=== PATIENT | male | born 1945 | race Caucasian/White ===

== ENCOUNTER 2023-11-09 14:30 | Outpatient (OUT) | payer MEDICARE, SELFPAY | END 2023-11-09 14:31 | disposition home or self-care (01) | LOC: WC 11-11 13:19 | PROVIDERS: PCP Physician Assistant; Visit Provider Physician Assistant | DX: I87.311 Chronic venous hypertension (idiopathic) with ulcer of right lower extremity (principal); L97.812 Non-pressure chronic ulcer of other part of right lower leg with fat layer exposed | CPT/HCPCS: G0463 ==

== ENCOUNTER 2023-11-23 14:22 | Outpatient (OUT) | payer MEDICARE, SELFPAY ==
--- OUTSIDE RECORDS SUMMARY | 2023-11-23 14:26 | XMS_ITS | CCD ---
Author Organization [facility] Care Team Providers Care Intelligence Agent Name Role Phone Unknown, Referring Provider Unavailable Unav ailable Unavailable Unavailable Kristi Ramos Primary Care Physician Mi, Dr. Zaman Referring Unavaila ble Mi, Dr. Zaman Attending Unavaila ble UNKNOWN, PCP Primary Care Unavailable UNKNOWN, PCP Primary Care Unavailable Mi, Dr. Zaman Referring Unavaila ble Mi, Dr. Zaman Attending Unavaila ble Richard, NICOLETTE Duron Primary Care Provider MD Brian Pradhan Attending Provider MD Becky Dupont Attending Provider [phone] ZACHARY, DR ABAD Admitting Unavailable ZACHARY, DR ABAD Consulting Unavailable ZACHARY, DR ABAD Attending Unavailable MISC, DR PORTER Admitting Unavailable MISC, DR PORTER Consulting Unavailable MISC, DR PORTER Attending Unavailable Cee DO, Elda R Primary Care Provider Leola Stark MD Unavailable LEOLA STARK Attending Unavailable CEE, ELDA R Primary Care Unavailable Cee DO, Elda Primary Care Provider Adrian Lares Attending Unavailabl Adrian Sewell Admitting Unavailabl e Cee III, Elda R Primary Care Unavailabl e Cee III, DO Elda R Primary Care Provider MD Adrian Lares Attending Provider Constance Kohler Admitting Unavailable NONE, XXXX Referring Unavailable Constance Kohler Attending Unavailable Dolkamlesh, Boris Hodges Attending Unavailable Dolkamlesh, Boris Hodges Referring Unavailable Dolkamlesh, Boris Hodges Attending Unavailable LORA HERNANDEZ Attending Unavailable DOLKAMLESH, BORIS Hodges Attending Unavailable DOLKAMLESH, BORIS Hodges Attending Unavailable DOLKAMLESH, BORIS Hodges Referring Unavailable PETITTI, BECKY Bryan Attending Unavailable DOLKAMLESH, BORIS Hodges Attending Unavailable PETITTI, BECKY Bryan Attending Unavailable DOLKAMLESH, BORIS Hodges Attending Unavailable PETITTI, BECKY Bryan Attending Unavailable POLLO SHARMA Attending Unavailable DOLCE, BORIS Hodges Attending Unavailable Akkina, Vito Admitting Unavailable Akkina, Vito Attending Unavailable Akkina, Vito Attending Unavailable Akkina, Vito Admitting Unavailable Medications Current Medications Medication Drug Class(es) Dates Sig (Normalized) Sig (Original) amLODIPine 5 mg oral tablet (20 sources) Dihydropyridine Calcium Channel Ernesto Start: 11-08-2019 take 1 tablet by mouth once daily amLODIPine 5 mg Tab 5 mg = 1 tab(s), Oral, Daily, Refills(s) 0 Start Date: 11/08/19 Status: Ordered Start: 01-27-2018 take 10 mg by mouth once daily Amlodipine Active 10 MG PO Daily January 27, 2018 1:00am aspirin 81 mg chewable tablet (20 sources) Platelet Aggregation Inhibitor, Nonsteroidal Anti-inflammatory Drug Start: 01-27-2018 take 81 mg by mouth two times weekly Aspirin Active 81 MG PO Twice a Week January 27, 2018 1:00am Wednesday and only Start: 10-19-2017 aspirin 81 mg Oral EC Tab 81 mg = 1 tab(s), Oral, TueFri, Refills(s) 0, Blood Thinner Start Date: 10/19/17 Status: Ordered Start: 10-19-2017 aspirin 81 mg Oral EC Tab 81 mg = 1 tab(s), Oral, TueFri, Refills(s) 0, Blood Thinner Start Date: 10/19/17 Status: Ordered betamethasone 0.5 mg/ml topical cream (6 sources) Corticosteroid Start: 12-31-2022 betamethasone dipropionate 0.05 % cream Indications: Erosive pustular dermatosis of scalp Apply to affected areas, up to twice a day when flared, do not use one the face, groin, or underarms, 30 day supply 45 g 11 12/31/2022 Active Start: 12-10-2022 betamethasone dipropionate (Diprolene) 0.05 % ointment Indications: Impetigo Apply to scalp BID 45 g 3 12/10/2022 Active cephalexin 500 mg oral capsule (3 sources) Cephalosporin Antibacterial Start: 12-14-2022 take 1 capsule by mouth twice daily cephalexin (Keflex) 500 MG capsule Indications: Impetigo Take 1 capsule, by mouth, bid x 7 days 14 capsule 0 12/14/2022 Active donepezil hydrochloride 10 mg oral tablet (11 sources) Start: 12-01-2022 donepezil 10 mg Tab Refills(s) 0 Start Date: 12/01/22 Status: Ordered take 1 tablet by mouth twice evelin ly donepezil (Aricept ODT) 10 mg disintegrating tablet Take 1 tablet (10 mg) by mouth 2 times a day. 0 Active dulaglutide (18 sources) GLP-1 Receptor Agonist Start: 04-15-2023 inject 3 mg by subcutaneous injection every week Dulaglutide Active 3 MG SUBCUT every week April 15, 2023 1:00am Start: 01-01-2020 Trulicity Pen 0.75 mg/0.5 mL subcutaneous solution SubCutaneous, qWeek, Refills(s) 0 Start Date: 01/01/20 Status: Ordered inject 1.5 mg by sub cutaneous injection every week dulaglutide (Trulicity) 1.5 MG/0.5ML solution pen-injector Inject 1.5 mg under the skin 1 (one) time per week. 0 Active empagliflozin 10 mg oral tablet (2 sources) Sodium-Glucose Cotransporter 2 Inhibitor Start: 04-15-2023 take 1 tablet by mouth once daily Empagliflozin (Jardiance) 10 mg tablet Active 10 MG PO Daily April 15, 2023 1:00am finasteride 5 mg oral tablet (20 sources) 5-alpha Reductase Inhibitor Start: 11-04-2020 take 1 tablet by mouth once daily finasteride 5 mg Tab 5 mg = 1 tab(s), Oral, Daily, # 90 tab(s), Refills(s) 3, Pharmacy: [facility] #[facility], 157, cm, 12/01/22 15:00:00 EDT, Height/Length Dosing, 94.6, kg, 12/01/22 15:00:00 EDT, Weight Dosing Start Date: 12/01/22 Status: Ordered take 1 tablet by mouth twice evelin ly finasteride (Proscar) 5 mg tablet Take 1 tablet (5 mg) by mouth 2 times a day. 0 Active furosemide 40 mg oral tablet (19 sources) Loop Diuretic Start: 10-24-2019 take 1 mg by mouth once daily furosemide 40 mg Tab mg tab(s), Oral, Daily, Refills(s) 0 Start Date: 11/04/20 Status: Ordered glyBURIDE 5 mg oral tablet (20 sources) Sulfonylurea Start: 11-08-2019 take 1 tablet by mouth once daily glyBURIDE 5 mg Tab 5 mg = 1 tab(s), Oral, Daily, Refills(s) 0 Start Date: 11/08/19 Status: Ordered Start: 01-27-2018 take 5 mg by mouth twice daily Glyburide Active 5 MG PO Twice daily January 27, 2018 1:00am 3 ml insulin glargine 100 unt/ml pen injector (18 sources) Insulin Analog Start: 04-15-2023 inject 10 [IU] by subcutaneous injection once daily in the evening Insulin Glargine (Lantus Solostar U-100 Insulin) 100 unit/mL (3 mL) insulin pen Active 10 UNIT SUBCUT Every evening April 15, 2023 1:00am Start: 11-04-2020 Lantus SubCuta neous, Daily, Refills(s) 0 Start Date: 11/04/20 Status: Ordered insulin glargine (Lantus) 100 UNIT/ML injection Inject under the skin at bedtime. 0 Active Lantus SOLN USE DIRECTED. Quantity: 0 Refills: 0 Ordered: 03-Dec-2021 DO Active metoprolol tartrate 25 mg oral tablet (20 sources) beta-Adrenergic Ernesto Start: 09-03-2017 take 1 tablet by mouth twice daily Metoprolol tartrate 25 mg Tab 25 mg = 1 tab(s), Oral, BID, Irregular heartbeat Start Date: 09/03/17 Status: Ordered take 1 tablet by mouth once alexei y metoprolol succinate XL (Toprol-XL) 25 mg 24 hr tablet Take 1 tablet (25 mg) by mouth once daily. Do not crush or chew. 0 Active take 1 tablet by mouth twice evelin ly Metoprolol Succinate ER 25 MG Oral Tablet Extended Release 24 Hour Take 1 tablet twice daily Quantity: 0 Refills: 0 Ordered: 27-Feb-2021 DO Active rosuvastatin calcium 40 mg oral tablet (20 sources) HMG-CoA Reductase Inhibitor Start: 04-15-2023 take 40 mg by mouth once daily Rosuvastatin Active 40 MG PO Daily April 15, 2023 1:00am Start: 03-30-2019 take 20 mg by mouth once daily at bedtime Crestor 20 mg, Oral, Once a day (at bedtime), Refills(s) 0 Start Date: 03/30/19 Status: Ordered take 2 tablets by [facility] in the morning rosuvastatin (Crestor) 20 MG tablet Take 40 mg by mouth in the morning. 0 Active take 1 tablet by [facility] once daily rosuvastatin (Crestor) 40 mg tablet Take 1 tablet (40 mg) by mouth once daily. 0 Active SITagliptin 25 mg oral tablet (2 sources) Dipeptidyl Peptidase 4 Inhibitor Start: 01-01-2020 take 1 mg by mouth once daily Januvia 25 mg Tab mg tab(s), Oral, Daily, Refills(s) 0 Start Date: 01/01/20 Status: Ordered spironolactone 25 mg oral tablet (14 sources) Aldosterone Antagonist Start: 12-01-2022 spironolactone 25 mg Tab Refills(s) 0 Start Date: 12/01/22 Status: Ordered tamsulosin hydrochloride 0.4 mg oral capsule (20 sources) alpha-Adrenergic Ernesto Start: 04-15-2023 take 0.4 mg by mouth once daily Tamsulosin Active 0.4 MG PO Daily April 15, 2023 1:00am Start: 11-04-2020 take 1 capsule by [facility] twice daily Flomax 0.4 mg Cap 0.4 mg = 1 cap(s), Oral, BID, # 180 cap(s), Refills(s) 3, Pharmacy: [facility], 157, cm, 12/01/22 15:00:00 EDT, Height/Length Dosing, 94.6, kg, 12/01/22 15:00:00 EDT, Weight Dosing Start Date: 12/01/22 Status: Ordered take 1 capsule by [facility] every twenty-four hours in the morning tamsulosin (Flomax) 0.4 MG 24 hr capsule Take 0.4 mg by mouth in the morning. 0 Active warfarin sodium 5 mg oral tablet (20 sources) Vitamin K Antagonist Start: 10-06-2022 Coumadin 5 mg Tab See Instructions, take 5 mg on . Take 2.5 mg all other days, # 90 tab(s), Refills(s) 1, Pharmacy: [facility], 157, cm, 11/26/21 14:13:00 EDT, Height/Length Dosing, 94.6, kg, 11/26/21 14:13:00 EDT, Weight Dosing Start Date: 10/06/22 Status: Ordered Start: 10-03-2019 Coumadin 5 mg Tab See Instructions, take 5 mg everday except wed and wednesday, # 90 tab(s), Refills(s) 2, Pharmacy: [facility], 157, cm, 11/04/20 12:43:00 EDT, Height/Length Dosing, 96.2, kg, 11/04/20 12:43:00 EDT, Weight Dosing Start Date: 09/02/21 Status: Ordered Start: 01-27-2018 Coumadin 2.5 m g Tab See Instructions, take 2.5 mg on wed and wednesday, # 90 tab(s), Refills(s) 2, Pharmacy: [facility], 157, cm, 11/04/20 12:43:00 EDT, Height/Length Dosing, 96.2, kg, 11/04/20 12:43:00 EDT, Weight Dosing Start Date: 09/02/21 Status: Ordered Start: 01-27-2018 End: 10-24-2019 take 1 mg by mouth once Warfarin Discontinued 1 MG P O every Wednesday, Wednesday, and Saturday January 27, 2018 1:00am October 24, 2019 9:21am Warfarin Sodium 2.5 MG Oral Tablet directed by [facility] Quantity: 0 Refills: 0 Ordered: 27-Feb-2021 DO Active Completed/Discontinued Medications Medication Drug Class(es) Dates Sig (Normalized) Sig (Original) amiodarone hydrochloride 200 mg oral tablet (6 sources) Antiarrhythmic Start: 01-27-2018 End: 04-15-2023 take 100 mg by mouth once daily Amiodarone Discontinued 100 MG PO Daily January 27, 2018 1:00am April 15, 2023 10:51am Start: 05-11-2014 take 1 tablet by rocio once daily amiodarone 200 mg Tab 200 mg = 1 tab(s), Oral, Daily, Refills(s) 0, Irregular heartbeat Start Date: 05/11/14 Status: Ordered atorvastatin 80 mg oral tablet (4 sources) HMG-CoA Reductase Inhibitor Start: 01-27-2018 End: 10-24-2019 take 80 mg by mouth once daily Atorvastatin Discontinued 80 MG PO Daily January 27, 2018 1:00am October 24, 2019 9:12am doxycycline hyclate 100 mg oral capsule (2 sources) Tetracycline-class Drug Start: 01-01-2020 take 1 tablet by mouth once daily doxycycline hyclate 100 mg Cap 100 mg = 1 cap(s), Oral, Daily, Take 1 tablet the day before the procedure and 1 tablet after the procedure, # 2 cap(s), Refills(s) 0, Pharmacy: [id number], 157, cm, 01/01/20 15:45:00 EST, Height/Length Dosing, 96, kg, 01/01/20 15:45:0... Start Date: 01/01/20 Status: Ordered gemfibrozil 600 mg oral tablet (4 sources) Peroxisome Proliferator Receptor alpha Agonist Start: 01-27-2018 End: 10-24-2019 take 600 mg by mouth twice daily Gemfibrozil Discontinued 600 MG PO Twice daily January 27, 2018 1:00am October 24, 2019 9:19am INSULIN SUPPLIES (11 sources) Start: 11-10-2019 INSULIN SUPPLI ES INSULIN SUPPLIES, See Instructions, 1 EA, 0, 1. KWIK PEN NEEDLES QID # 120, [facility], Supply, 158, cm, 11/08/19 9:19:00 EDT, Height/Length Dosing, 93.9, kg, 11/08/19 9:19:00 EDT, Weight Dosing Start Date: 11/10/19 Status: Ordered losartan potassium 100 mg oral tablet (4 sources) Angiotensin 2 Receptor Ernesto Start: 01-27-2018 End: 04-15-2023 take 100 mg by mouth once daily Losartan Discontinued 100 MG PO Daily January 27, 2018 1:00am April 15, 2023 10:52am Magnesium (8 sources) Start: 10-24-2019 End: 04-15-2023 take 400 mg by mouth once daily Magnesium Discontinued 400 MG PO Daily October 24, 2019 12:00am April 15, 2023 10:53am CONTINUE HOME ROUTINE Start: 10-24-2019 take 400 mg by mouth once daily Magnesium Active 400 MG PO Daily October 23, 2019 11:00pm CONTINUE HOME ROUTINE Start: 01-27-2018 End: 10-24-2019 take 250 mg by mouth once daily Magnesium Discontinued 250 MG PO Daily January 27, 2018 1:00am October 24, 2019 9:25am Start: 01-27-2018 End: 10-24-2019 take 250 mg by mouth once daily Magnesium Discontinued 250 MG PO Daily January 27, 2018 12:00am October 24, 2019 8:25am metFORMIN hydrochloride 1000 mg oral tablet (4 sources) Biguanide Start: 01-27-2018 End: 04-15-2023 take 1000 mg by mouth twice daily Metformin Discontinued 1000 MG PO Twice daily January 27, 2018 1:00am April 15, 2023 10:53am niacin 500 mg oral tablet (4 sources) Nicotinic Acid Start: 01-27-2018 End: 10-24-2019 take 500 mg by mouth once daily Niacin Discontinued 500 MG PO Daily January 27, 2018 1:00am October 24, 2019 9:20am potassium chloride 20 meq extended release oral tablet (4 sources) Start: 01-27-2018 End: 04-15-2023 take 40 mEq by mouth three times daily Potassium Chloride Discontinued 40 MEQ PO Three times daily January 27, 2018 1:00am April 15, 2023 10:53am Problems Active Problems Problem Classification Problem Date Documented Date Episodic/Chronic Acute cerebrovascular disease (14 sources) Cerebrovascular accident; Translations: [Cerebral infarction, unspecified] Onset: 11-19-2022 12-04-2019 Chronic Cardiac dysrhythmias (20 sources) Permanent atrial fibrillation; Translations: [Atrial fibrillation] Onset: 02-24-2023 Chronic Chronic kidney disease (1 source) Chronic kidney disease; Translations: [Chronic kidney disease, unspecified] Chronic Chronic ulcer of skin (2 sources) Chronic ulcer of lower extremity; Translations: [Non-pressure chronic ulcer of unspecified part of right lower leg with fat layer exposed] 03-29-2023 Chronic Complications of surgical procedures or medical care (1 source) Complication of procedure; Translations: [Other complications of procedures, not elsewhere classified, initial encounter] Onset: 11-17-2021 Episodic Congestive heart failure; nonhypertensive (3 sources) Acute on chronic diastolic heart failure; Translations: [Acute on chronic diastolic (congestive) heart failure] Onset: 12-22-2017 11-19-2022 Chronic Coronary atherosclerosis and other heart disease (20 sources) Single coronary vessel disease; Translations: [Coronary atherosclerosis of unspecified type of vessel, hoopa or graft] Onset: 11-19-2022 Chronic Coronary atherosclerosis and other heart disease (1 source) Coronary atherosclerosis and other heart disease; Translations: [Atherosclerosis of hoopa arteries of extremities with intermittent claudication, bilateral legs] Onset: 04-28-2023 Diabetes mellitus with complications (10 sources) Complication due to diabetes mellitus; Translations: [Type 2 diabetes mellitus with other specified complication] Onset: 07-08-2022 Chronic Diabetes mellitus without complication (13 sources) Diabetes mellitus; Translations: [Type 2 diabetes mellitus without complications] 10-27-2017 Chronic Disorders of lipid metabolism (20 sources) Hyperlipidemia; Translations: [Other and unspecified hyperlipidemia] Onset: 11-19-2022 Chronic Essential hypertension (20 sources) Hypertensive disorder; Translations: [Unspecified essential hypertension] Onset: 11-19-2022 Resolved: 11-19-2022 09-03-2017 Chronic Fluid and electrolyte disorders (4 sources) Hypokalemia; Translations: [Hypopotassemia] Onset: 02-24-2023 02-24-2023 Episodic Genitourinary symptoms and ill-defined conditions (20 sources) H/O: kidney disease; Translations: [Personal history of other specified urinary system disorders] Onset: 11-26-2021 Resolved: 11-19-2022 11-04-2020 Episodic Hyperplasia of prostate (16 sources) Benign prostatic hypertrophy with outflow obstruction; Translations: [Benign prostatic hyperplasia with lower urinary tract symptoms] Onset: 11-26-2021 12-04-2019 Chronic Hypertension with complications and secondary hypertension (4 sources) 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; Translations: [Hypertensive heart and chronic kidney disease without heart failure, with stage 1 through stage 4 chronic kidney disease, or unspecified chronic kidney disease] Onset: 12-22-2017 Chronic Inflammatory conditions of male genital organs (14 sources) Balanitis; Translations: [Balanitis] Onset: 11-19-2022 12-04-2019 Chronic Inflammatory conditions of male genital organs (14 sources) Prostatitis; Translations: [Inflammatory disease of prostate, unspecified] Onset: 11-19-2022 12-04-2019 Episodic Other aftercare (3 sources) Drug therapy finding; Translations: [Long-term (current) use of other medications] Episodic Other aftercare (2 sources) Drug monitoring done; Translations: [Encounter for therapeutic drug level monitoring] Episodic Other aftercare (2 sources) Long-term current use of anticoagulant; Translations: [watermaster (current) use of anticoagulants] Episodic Other aftercare (1 source) Long-term current use of insulin; Translations: [residential (current) use of insulin] Episodic Other aftercare (1 source) Long-term current use of oral hypoglycemic medication; Translations: [residential (current) use of oral hypoglycemic drugs] Episodic Other aftercare (1 source) Long-term current use of aspirin; Translations: [residential (current) use of aspirin] Episodic Other aftercare (1 source) Long-term current use of drug therapy; Translations: [Other watermaster (current) drug therapy] Episodic Other circulatory disease (3 sources) H/O: hypertension; Translations: [Personal history of other diseases of circulatory system] Episodic Other circulatory disease (1 source) History of transient ischemic attack; Translations: [Personal history of transient ischemic attack (TIA), and cerebral infarction without residual deficits] Episodic Other diseases of kidney and ureters (11 sources) Renal insufficiency 09-03-2017 Episodic Other diseases of veins and lymphatics (2 sources) Peripheral venous insufficiency; Translations: [Venous insufficiency (chronic) (peripheral)] 03-29-2023 Episodic Other diseases of veins and lymphatics (2 sources) Vascular insufficiency; Translations: [Venous insufficiency (chronic) (peripheral)] 04-15-2023 Episodic Other ear and sense organ disorders (4 sources) Sensorineural hearing loss, bilateral; Translations: [Sensorineural hearing loss, bilateral] Onset: 02-24-2023 02-24-2023 Chronic Other ear and sense organ disorders (17 sources) Mixed conductive AND sensorineural hearing loss; Translations: [Mixed hearing loss, unilateral] Onset: 11-19-2022 10-19-2017 Chronic Comment on above: left Other ear and sense organ disorders (1 source) Mixed conductive and sensorineural hearing loss of left ear; Translations: [Mixed conductive and sensorineural hearing loss, unilateral, left ear, with unrestricted hearing on the contralateral side] Onset: 02-24-2023 02-24-2023 Chronic Other ear and sense organ disorders (3 sources) Asymmetrical sensorineural hearing loss; Translations: [Sensorineural hearing loss, bilateral] Onset: 11-19-2022 11-19-2022 Chronic Other ear and sense organ disorders (3 sources) Mixed conductive and sensorineural hearing loss of right ear; Translations: [Mixed conductive and sensorineural hearing loss, unilateral, right ear, with unrestricted hearing on the contralateral side] Onset: 11-19-2022 11-19-2022 Chronic Other ear and sense organ disorders (3 sources) Sensorineural hearing loss, unilateral, left ear, with unrestricted hearing on the contralateral side; Translations: [Sensorineural hearing loss, unilateral] Onset: 11-19-2022 11-19-2022 Chronic Other ear and sense organ disorders (3 sources) Unspecified hearing loss, left ear; Translations: [Unspecified hearing loss] Onset: 11-24-2022 11-24-2022 Chronic Other lower respiratory disease (6 sources) Dyspnea; Translations: [Shortness of breath] Onset: 02-24-2023 03-24-2023 Episodic Other lower respiratory disease (1 source) Shortness of breath; Translations: [Shortness of breath] Onset: 02-24-2023 Episodic Other nutritional; endocrine; and metabolic disorders (2 sources) Obesity; Translations: [Obesity, unspecified] Chronic Other nutritional; endocrine; and metabolic disorders (1 source) Severe obesity; Translations: [Morbid obesity] Chronic Other nutritional; endocrine; and metabolic disorders (2 sources) Body mass index 30+ - obesity; Translations: [Body mass index (BMI) 35.0-35.9, adult] Onset: 03-24-2023 03-24-2023 Chronic Other nutritional; endocrine; and metabolic disorders (2 sources) Body mass index (BMI) 35.0-35.9, adult; Translations: [Body mass index (BMI) 35.0-35.9, adult] Onset: 03-24-2023 Chronic Other nutritional; endocrine; and metabolic disorders (3 sources) H/O: diabetes mellitus; Translations: [Personal history of other endocrine, metabolic, and immunity disorders] Episodic Other nutritional; endocrine; and metabolic disorders (3 sources) H/O: metabolic disorder; Translations: [Personal history of other endocrine, metabolic, and immunity disorders] Episodic Peripheral and visceral atherosclerosis (1 source) Peripheral vascular disease, unspecified; Translations: [Peripheral arterial disease] 05-06-2023 Chronic Residual codes; unclassified (4 sources) Obstructive sleep apnea (adult) (pediatric); Translations: [OBSTRUCTIVE SLEEP APNEA] Onset: 06-16-2022 Chronic Residual codes; unclassified (3 sources) H/O: respiratory disease; Translations: [Other specified personal history presenting hazards to health] Episodic Unclassified (2 sources) Permanent atrial fibrillation; Translations: [Permanent atrial fibrillation (CMS/HCC)] Onset: 02-24-2023 Varicose veins of lower extremity (3 sources) Varicose veins of bilateral lower extremities with pain; Translations: [Varicose veins of lower limb co-occurrent with edema] Onset: 04-28-2023 05-03-2023 Episodic Past or Other Problems Problem Classification Problem Date Documented Da te Episodic/Chronic Mycoses (3 sources) Onychomycosis; Translations: [Tinea unguium] Onset: 07-08-2022 07-08-2022 Episodic Other connective tissue disease (3 sources) Pain of toe of right foot; Translations: [Pain in right toe(s)] Onset: 07-08-2022 07-08-2022 Episodic Other connective tissue disease (3 sources) Pain of toe of left foot; Translations: [Pain in left toe(s)] Onset: 07-08-2022 07-08-2022 Episodic Other ear and sense organ disorders (3 sources) Bilateral tinnitus; Translations: [Tinnitus, bilateral] Onset: 11-19-2022 11-19-2022 Episodic Other ear and sense organ disorders (3 sources) Tinnitus; Translations: [Tinnitus, unspecified ear] Onset: 11-19-2022 Resolved: 11-19-2022 11-19-2022 Episodic Other non-epithelial cancer of skin (9 sources) History of malignant neoplasm of skin; Translations: [Personal history of other malignant neoplasm of skin] Onset: 11-19-2022 11-19-2022 Episodic Other skin disorders (3 sources) Lesion of scalp; Translations: [Disorder of the skin and subcutaneous tissue, unspecified] Onset: 11-24-2022 11-24-2022 Episodic Superficial injury; contusion (3 sources) Blister of ankle without infection; Translations: [Blister (nonthermal), unspecified ankle, initial encounter] Onset: 06-05-2020 Resolved: 11-19-2022 11-19-2022 Episodic Unclassified (3 sources) Never smoked tobacco; Translations: [Never a smoker] Unclassified (11 sources) Basal cell carcinoma 09-03-2017 Unclassified (11 sources) Diabetic care 10-20-2017 Unclassified (1 source) Onset: 03-24-2023 03-24-2023 Results Test Name Value Interpretation Reference Range Facility POCT PT/INRon 11-12-2023 POCT INR 2.5 High .7-1.2 [facility] Comment on above: Performed By: #### 2 [id number] #### [facility] [address] [place] [address] POCT PT 27.1 second(s) High 8.0-15.0 [facility] Comment on above: Performed By: #### 2 [id number] #### [facility] [address] [place] [address] CHEMISTRYOrdered By: SYSTEM SYSTEM on 10-01-2023 Albumin [Mass/Vol] 4.1 g/dL Normal 3.3 - 5.0 gm/dL Remisol Chem Anion gap [Moles/Vol] 13 mmol/L Normal 6 - 16 mEq/L R emisol Chem Calcium [Mass/Vol] 9.0 mg/dL Normal 8.9 - 11. 1 mg/dL Remisol Chem Chloride [Moles/Vol] 110 mmol/L Normal 101 - 1 11 mmol/L Remisol Chem CO2 [Moles/Vol] 20 mmol/L Low 21 - 31 mmol/L Remisol Chem Creatinine [Mass/Vol] 2.0 mg/dL High 0.5 - 1.3 mg/dL Remisol Chem eGFR 33 mL/min/1.73 m2 Low >=59mL/min /1 .73 m2 Remisol Chem Glucose [Mass/Vol] 124 mg/dL Normal 55 - 199 mg/dL Remisol Chem Phosphate [Mass/Vol] 3.4 mg/dL Normal 1.9 - 4 .6 mg/dL Remisol Chem Potassium [Moles/Vol] 5.2 mmol/L Normal 3.5 - 5.3 mmol/L Remisol Chem Sodium [Moles/Vol] 138 mmol/L Normal 135 - 145 mmol/L Remisol Chem Urea nitrogen [Mass/Vol] 36 mg/dL High 5 - 21 mg/dL Remisol Chem Urea nitrogen/Creatinine [Mass ratio] 18 mg/mg Normal 10 - 20 Remisol Chem Protein/Creatinine (U) [Ratio] 88.70 mg/gm Cr Normal 0.00 - 200.00 mg/gm Cr Remisol Chem U Creatinine 41.5 mg/dL Invalid Interpretation Code Remisol Chem Ur Total Protein 36.8 mg/dL Invalid Interpretation Code Remisol Chem POCT PT/INRon 10-01-2023 POCT INR 2.8 High .7-1.2 [facility] Comment on above: Performed By: #### 2 [id number] #### [facility] [address] [place] [address] POCT PT 28.2 second(s) High 8.0-15.0 [facility] Comment on above: Performed By: #### 2 [id number] #### [facility] [address] [place] [address] Renal Panelon 10-01-2023 Phosphate [Mass/Vol] 3.4 mg/dL Normal 1.9-4.6 [facility] Comment on above: Performed By: #### 1 [id number] #### [facility] [address] [place] [address] Albumin [Mass/Vol] 4.1 g/dL Normal 3.3-5.0 [facility] Comment on above: Performed By: #### 1 [id number] #### [facility] [address] [place] [address] Anion gap [Moles/Vol] 13 mmol/L Normal 6-16 [facility] Comment on above: Performed By: #### 1 [id number] #### [facility] [address] [place] [address] Calcium [Mass/Vol] 9.0 mg/dL Normal 8.9-11.1 [facility] Comment on above: Performed By: #### 1 [id number] #### [facility] [address] [place] [address] Chloride [Moles/Vol] 110 mmol/L Normal 101-111 [facility] Comment on above: Performed By: #### 1 [id number] #### [facility] [address] [place] [address] CO2 [Moles/Vol] 20 mmol/L Low 21-31 [facility] Comment on above: Performed By: #### 1 [id number] #### [facility] [address] [place] [address] Creatinine [Mass/Vol] 2.0 mg/dL High 0.5-1.3 [facility] Comment on above: Performed By: #### 1 [id number] #### [facility] [address] [place] [address] Glucose [Mass/Vol] 124 mg/dL Normal 55-199 [facility] Comment on above: Performed By: #### 1 [id number] #### [facility] [address] [place] [address] Potassium [Moles/Vol] 5.2 mmol/L Normal 3.5-5.3 [facility] Comment on above: Performed By: #### 1 [id number] #### [facility] [address] [place] [address] Sodium [Moles/Vol] 138 mmol/L Normal 135-145 [facility] Comment on above: Performed By: #### 1 [id number] #### [facility] [address] [place] [address] Urea nitrogen [Mass/Vol] 36 mg/dL High 5-21 [facility] Comment on above: Performed By: #### 1 [id number] #### [facility] [address] [place] [address] Urea nitrogen/Creatinine [Mass ratio] 18 No Units Normal 10-20 [facility] Comment on above: Performed By: #### 1 [id number] #### [facility] [address] [place] [address] U Protein/Creat Ratioon 09-15 Protein/Creatinine (U) [Ratio] 88.70 mg/gm Cr Normal .00-200.00 [facility] Comment on above: Performed By: #### 1 [id number] #### [facility] [address] [place] [address] U Creatinine 41.5 mg/dL Invalid Interpretation Code [facility] Comment on above: Performed By: #### 1 [id number] #### [facility] [address] [place] [address] Ur Total Protein 36.8 mg/dL Invalid Interpretation Code [facility] Comment on above: Performed By: #### 1 [id number] #### [facility] [address] [place] [address] URINALYSISOrdered By: SYSTEM SYSTEM on 10-01-2023 Bilirubin Ql (U) Negative Normal Negativemg/ d L [facility] UA Auto SS Clarity (U) Clear (10/01/23 6:59 AM) Normal Clear [facility] UA Auto SS Color (U) Colorless 1 *ABN* (10/01/23 6:59 AM) Invalid Interpretation Code Yellow [facility] UA Auto SS Comment on above: Interpretive Data: M icroscopic readings are only performed on those samples that meet specific criteria set forth by [facility]. Epithelial cells.squamous Auto (Urine sed) [#/Area] 0-2 graded/HPF Invalid Interpretation Code FT UA Auto SS Glucose Ql (U) 4+ mg/dL Invalid Interpretation Code Negativemg/d L [facility] UA Auto SS Hemoglobin Auto test strip (U) [Mass/Vol] Trace mg/dL Invalid Interpretation Code Negativemg/d L [facility] UA Auto SS Ketones Auto test strip Ql (U) Negative Normal Negativemg/d L [facility] UA Auto SS Leukocyte esterase Auto test strip Ql (U) 250 Raquel/uL Raquel/uL Invalid Interpretation Code NegativeLeu/ uL [facility] UA Auto SS Mucus Auto Ql (U) Negative Normal Negativegr ad ed/LPF [facility] UA Auto SS Nitrite Auto test strip Ql (U) Negative Normal Negativemg/d L [facility] UA Auto SS pH (U) 6.0 *NA* (10/01/23 6:59 AM) Invalid Interpretation Code 5.0 - 9.0 [facility] UA Auto SS Protein Ql (U) Trace mg/dL Invalid Interpretation Code Negativemg/d L [facility] UA Auto SS RBC Ql (U) 4-20 graded/HPF Invalid Interpretation Code 0-3graded/HP F [facility] UA Auto SS Specific gravity (U) [Rel density] 1.011 *NA* (10/01/23 6:59 AM) Invalid Interpretation Code 1.005 - 1.030 [facility] UA Auto SS Urobilinogen (U) [Mass/Vol] Negative Normal Negativemg/d L [facility] UA Auto SS WBC Auto (Urine sed) [#/Area] 6-15 graded/HPF Invalid Interpretation Code 0-5graded/HP F [facility] UA Auto SS URINALYSISOrdered By: Eun Light on 10-01-2023 UA Spec Desc Clean Catch (10/01/23 6:59 AM) Normal [facility] UA Auto SS Urinalysis with Microon 09-15 Bilirubin Ql (U) Negative Normal Negative [facility] Comment on above: Performed By: #### 4 [id number] #### [facility] [address] [place] [id number] Clarity (U) Clear Normal Clear [facility] Comment on above: Performed By: #### 4 [id number] #### [facility] [address] [place] [address] Color (U) Colorless Abnormal Yellow [facility] Comment on above: Result Comment: Micr oscopic readings are only performed on those samples that meet specific criteria set forth by [facility]. Performed By: #### 4 [id number] #### [facility] [address] [place] [address] Epithelial cells.squamous Auto (Urine sed) [#/Area] 0-2 Invalid Interpretation Code [facility] Comment on above: Performed By: #### 4 [id number] #### [facility] [address] [place] [address] Glucose Ql (U) 4+ mg/dL Abnormal Negative [facility] Comment on above: Performed By: #### 4 [id number] #### [facility] [address] [place] [address] Hemoglobin Auto test strip (U) [Mass/Vol] Trace Abnormal Negative [facility] Comment on above: Performed By: #### 4 [id number] #### [facility] [address] [place] [address] Ketones Auto test strip Ql (U) Negative Normal Negative [facility] Comment on above: Performed By: #### 4 [id number] #### [facility] [address] [place] [address] Leukocyte esterase Auto test strip Ql (U) 250 Raquel/uL Abnormal Negative [facility] Comment on above: Performed By: #### 4 [id number] #### [facility] [address] [place] [address] Mucus Auto Ql (U) Negative Normal Negative [facility] Comment on above: Performed By: #### 4 [id number] #### [facility] [address] [place] [address] Nitrite Auto test strip Ql (U) Negative Normal Negative [facility] Comment on above: Performed By: #### 4 [id number] #### [facility] [address] [place] [address] pH (U) 6.0 [pH] Invalid Interpretation Code 5.0-9.0 [facility] Comment on above: Performed By: #### 4 [id number] #### [facility] [address] [place] [address] Protein Ql (U) Trace Abnormal Negative [facility] Comment on above: Performed By: #### 4 [id number] #### [facility] [address] [place] [address] RBC Ql (U) 4-20 Abnormal 0-3 [facility] Comment on above: Performed By: #### 4 [id number] #### [facility] [address] [place] [address] Specific gravity (U) [Rel density] 1.011 Invalid Interpretation Code 1.005-1.030 [facility] Comment on above: Performed By: #### 4 [id number] #### [facility] [address] [place] [address] Urobilinogen (U) [Mass/Vol] Negative Normal Negative [facility] Comment on above: Performed By: #### 4 [id number] #### [facility] [address] [place] [address] WBC Auto (Urine sed) [#/Area] 6-15 Abnormal 0-5 [facility] Comment on above: Performed By: #### 4 [id number] #### [facility] [address] [place] [address] Type of Urine collection method Clean Catch Normal [facility] Comment on above: Performed By: #### 4 [id number] #### [facility] [address] [place] [address] eGFRon 10-01-2023 eGFR 33 mL/min/1.73 m2 Low >=59 [facility] Comment on above: Order Comment: Order added by Discern Expert. Performed By: #### 1 [id number] #### [facility] [address] [place] [address] POCT PT/INRon 08-13-2023 POCT INR 2.5 High .7-1.2 [facility] Comment on above: Performed By: #### 2 [id number] #### [facility] [address] [place] [address] POCT PT 25.5 second(s) High 8.0-15.0 [facility] Comment on above: Performed By: #### 2 [id number] #### [facility] [address] [place] [address] POCT PT/INRon 07-09-2023 POCT INR 2.4 High .7-1.2 [facility] Comment on above: Performed By: #### 2 [id number] #### [facility] [address] [place] [facility] [place] [address] POCT PT 25.1 second(s) High 8.0-15.0 [facility] Comment on above: Performed By: #### 2 [id number] #### [facility] [address] [place] [place] [address] POCT PT/INRon 06-15-2023 POCT INR 2.7 High .7-1.2 [facility] Comment on above: Performed By: #### 2 [id number] #### [facility] [address] [place] [address] POCT PT 27.1 second(s) High 8.0-15.0 [facility] Comment on above: Performed By: #### 2 [id number] #### [facility] [address] [place] [address] POCT PT/INRon 06-01-2023 POCT INR 1.7 High .7-1.2 [facility] Comment on above: Performed By: #### 2 [id number] #### [facility] [address] [place] [address] POCT PT 18.5 second(s) High 8.0-15.0 [facility] Comment on above: Performed By: #### 2 [id number] #### [facility] [address] [place] [address] POCT PT/INRon 05-14-2023 POCT INR 3.5 High .7-1.2 [facility] Comment on above: Performed By: #### 2 [id number] #### [facility] [address] [place] [address] POCT PT 34.8 second(s) High 8.0-15.0 [facility] Comment on above: Performed By: #### 2 [id number] #### [facility] [address] [place] [address] US arterial pvr rest Milind US arterial pvr rest LE [facility] [place] [address] [place] [address] Ultrasound Report Signed Patient: Mckayla Lozano MR#: [id number] : 1945 Acct:[id number] Age/Sex: 77 / M ADM Date: 04/28/23 Loc: Room: Type: [facility] Attending Dr: Adrian Lares MD Ordering Provider: Adrian Lares MD Date of Service: 04/28/23 US/US arterial pvr rest LE: I70.213 - Atherosclerosis of hoopa arteries of extremiti... Copies to: Adrian Lares MD LOWER EXTREMITY SEGMENTAL ARTERIAL DOPSCAN (PVR) INDICATION: Color changes and diminished pulses. PROCEDURE: Right arm blood pressure is 136 , left is 125 . Pressures throughout the right leg are 236 at the high thigh, >254 at the calf, cno at the ankle using the posterior tibial artery and 133 at the ankle using the dorsalis pedis artery with ankle-brachial index of 0.98 -NC- . Pressures throughout the left leg are 239 at the high thigh,, 185 at the calf, 113 at the ankle using the posterior tibial artery and 245 at the ankle using the dorsalis pedis artery with ankle-brachial index of 1.80 0.83 . Wave forms by plethysmography are multiphasic in the right lower extremity and biphasic in the left lower extremity. 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 THE PATIENT IS MOST LIKELY TO HAVE diffuse DISEASE OF THE bilateral LOWER EXTREMITY. Impression dictated by: Adrian Lares MD04/28/2023 2:56 PM Dictation Location: [facility] Tech: Brianda Vasquez Transcribed By: CHELO 04/28/23 1456 Dictated By: Adrian Lares MD 04/28/23 145 Signed By: 04/28/23 145 [facility] US venous duplex LE BIon US venous duplex LE BI [facility] [place] [address] Ultrasound Report Signed Patient: Mckayla Lozano MR#: [id number] : 1945 Acct:[id number] Age/Sex: 77 / M ADM Date: 04/28/23 Loc: Room: Type: [facility] Attending Dr: Adrian Lares MD Ordering Provider: Adrian Lares MD Date of Service: 04/28/23 US/US venous duplex LE BI: I83.813 - Varicose veins of bilateral lower extremities w... Copies to: Adrian Lares MD BILATERAL LOWER EXTREMITY VENOUS DUPLEX INDICATION: Symptomatic varicose veins and skin discoloration. PROCEDURE: Color-flow duplex scanning is used to interrogate the deep venous system of the right and left lower extremities. The common femoral vein, femoral vein and popliteal vein show good compressibility with normal proximal and distal augmentation. The calf veins are compressible. US/US venous duplex LE BI IMPRESSION: NO EVIDENCE FOR DEEP VEIN THROMBOSIS OR PROXIMAL SUPERFICIAL THROMBOPHLEBITIS IN THE RIGHT OR LEFT LOWER EXTREMITY. No reflux identified in the bilateral lower extremities. Impression dictated by: Adrian Lares MD04/28/2023 2:56 PM Dictation Location: [place] [address] Tech: Elise Srinivasan Transcribed By: [facility] 04/28/23 1456 Dictated By: Adrian Lares MD 04/28/23 1456 Signed By: 04/28/23 1456 Normal [facility] POCT PT/INRon 04-02-2023 POCT INR 2.0 High .7-1.2 [facility] Comment on above: Performed By: #### 2 [id number] #### [facility] [address] [place] [address] POCT PT 21.4 second(s) High 8.0-15.0 [facility] Comment on above: Performed By: #### 2 [id number] #### [facility] [address] [place] [address] ECG 12 Leadon 03-24-2023 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 [facility] Nursing Assessment - Woundon 03-10-2023 Nursing Assessment - Wound [id number]#1. [facility] POCT PT/INRon 03-05-2023 POCT INR 2.6 High .7-1.2 [facility] Comment on above: Performed By: #### 2 [id number] #### [facility] [address] [place] [address] POCT PT 26.6 second(s) High 8.0-15.0 [facility] Comment on above: Performed By: #### 2 [id number] #### [facility] [address] [place] [address] Nursing Note - Woundon 03-03 Nursing Note - Wound [id number] [id number]#2. [facility] Consent for Treatmenton 02-15 Consent for Treatment [id number] [id number]#1.0 [facility] Multi-Wound Charton 03-02-19 Multi-Wound Chart [id number] 10 [id number]#1. [facility] Nursing Assessment - Woundon 03-02-2023 Nursing Assessment - Wound [id number]#1. [facility] Physician Orderon 03-02-2023 Physician Order [id number]#1. [facility] Progress Note - Woundon 02-15 Progress Note - Wound [id number] [id number]#1. [facility] Consent to Photographon 02-15 Consent to Photograph [id number] [id number]#1. [facility] Correspondence - Woundon Correspondence - Wound [id number]#1. [facility] Multi-Wound Charton 02-24-19 Multi-Wound Chart [id number] 10 [id number]#1. [facility] Nursing Note - Woundon 02-24 Nursing Note - Wound [id number] 010 [id number]#2. [facility] Outside Recordson 02-24-2023 Outside Records [id number] 03 [id number]#1. [facility] Procedure - Woundon 02-24-19 Procedure - Wound [id number] 10 [id number]#1. [facility] Consent for Treatmenton Consent for Treatment [id number] [id number]#1.0 [facility] Nursing Assessment - Woundon 02-23-2023 Nursing Assessment - Wound [id number]#1. [facility] Physician Orderon 02-23-2023 Physician Order [id number]#1. [facility] Progress Note - Woundon Progress Note - Wound [id number]#1. [facility] Insurance Correspondenceon 02-22-2023 Insurance Correspondence [id number]#1.0 0[facility] Normal [facility] Consent for Treatmenton Consent for Treatment [id number] [id number]#1.0 0[facility] Normal [facility] Correspondence - Woundon Correspondence - Wound [id number]#1. 00TI[facility] Normal [facility] CHEMISTRYOrdered By: Lab ROP User on 01-22-2023 INR Coag (Bld) [Relative time] 3.2 {INR} High 0.7 - 1.2 [facility] POC Subsection POC Device SN [id number] Invalid Interpretation Code [facility] POC Subsection POC Username CAMILLE PAT Invalid Interpretation Code [facility] POC Subsection POCT PT 32.2 s High 8.0 - 15.0 second(s) [facility] POC Subsection Sodium [Moles/Vol] 500391925 mmol/L Invalid Interpretation Code [facility] POC Subsection COAGULATIONOrdered By: April Pat on 01-22-2023 INR Coag (Bld) [Relative time] 3.2 {INR} High 0.7 - 1.2 [facility] POCT PT 32.2 s High 8 - 15 second(s) [facility] Medication Refillon 01-23-20 Medication Refill Patient: MCKAYLA LOZANO Age: 77 years Sex: Male : 1945 Associated Diagnoses: None Author: Bi RN, Camille Godfrey Impression and Plan Refill [facility] [place] for warfarin 2.5mg tablets for a 90 day supply with 1 refill Normal [facility] POCT PT/INRon 01-22-2023 POCT INR 3.2 High .7-1.2 [facility] Comment on above: Performed By: #### 2 [id number] #### [facility] [address] [place] [address] POCT PT 32.2 second(s) High 8.0-15.0 [facility] Comment on above: Performed By: #### 2 [id number] #### [facility] [address] [place] [address] CHEMISTRYOrdered By: Radha HANCOCK User on 12-11-2022 POC Device SN [id number] Invalid Interpretation Code [facility] POC Subsection POC UsernamLALO Pelayo Invalid Interpretation Code [facility] POC Subsection Sodium [Moles/Vol] 852715186 mmol/L Invalid Interpretation Code [facility] POC Subsection COAGULATIONOrdered By: Yuridia Nur on 12-11-2022 INR Coag (Bld) [Relative time] 3.0 {INR} High 0.7 - 1.2 [facility] POCT PT 31.9 s High 8 - 15 second(s) [facility] POCT PT/INRon 12-11-2022 POCT INR 3.0 High .7-1.2 [facility] Comment on above: Performed By: #### 2 [id number] ####[facility] [address] [place] [address] POCT PT 31.9 second(s) High 8.0-15.0 [facility] Comment on above: Performed By: #### 2 [id number] ####[facility] [address] [place] [address] [place] 12-02-2022 Screens [id number]#1.0 [facility] Normal [facility] Ambulatory Visit Summaryon 1 Ambulatory Visit Summary MCKAYLA LOZANO :1945 Visit Date:12/01/2022 Ambulatory Visit Instructions Your Diagnosis BPH with urinary obstruction Tests Performed Urnls Dip Stick Auto w/o Microscopy POC [address] Your Care Team Attending Physician - LORA HERNANDEZ PA-C Primary Care Physician - Kristi Ramos CNP This Is Your Medications List finasteride (finasteride 5 mg Tab) tamsulosin (Flomax 0.4 mg Cap) Contact prescribing physician if questions or concerns Misc Prescription (INSULIN SUPPLIES) amlodipine (amLODIPine 5 mg Tab) aspirin (aspirin 81 mg Oral EC Tab) donepezil (donepezil 10 mg Tab) dulaglutide (Trulicity Pen 0.75 mg/0.5 mL subcutaneous solution) furosemide (furosemide 40 mg Tab) glyBURIDE (glyBURIDE 5 mg Tab) insulin glargine (Lantus) metoprolol (Metoprolol tartrate 25 mg Tab) rosuvastatin (Crestor) spironolactone (spironolactone 25 mg Tab) warfarin (Coumadin 2.5 mg Tab) warfarin (Coumadin 5 mg Tab) Procedures Performed LEFT EXPLORATORY TYMPANOTOMY, 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 Discharge Vitals Heart Rate (Peripheral) 68 Respiratory Rate 16 Blood Pressure 130/76 Height 157 cm Height 62 in Weight 94.6 kg Weight 208.12 lb BMI 38.38 What to do next Scheduled Follow-Up Appointments Wednesday 3:30 PM EDT Where: [facility] You Need to Schedule the Following Appointments Follow Up with MARY RAMIREZ, COMFORT JANG When: Only if needed Where: [address] [place] [address] [phone] Medications What How Much When Instructions Unchanged finasteride (finasteride 5 mg Tab) 1 Tablets By Mouth Every day Unchanged tamsulosin (Flomax 0.4 mg Cap) 1 Capsules By Mouth 2 times a day Unchanged amlodipine (amLODIPine 5 mg Tab) 1 Tablets By Mouth Every day Contact prescribing physician if questions or concerns Unchanged aspirin (aspirin 81 mg Oral EC Tab) 1 Tablets By Mouth Wednesday & Wednesday Contact prescribing physician if questions or concerns Unchanged donepezil (donepezil 10 mg Tab) Contact prescribing physician if questions or concerns Unchanged dulaglutide (Trulicity Pen 0.75 mg/ 0.5 mL subcutaneous solution) Subcutaneous Every week Contact prescribing physician if questions or concerns Unchanged furosemide (furosemide 40 mg Tab) By Mouth Every day Contact prescribing physician if questions or concerns Unchanged glyBURIDE (glyBURIDE 5 mg Tab) 1 Tablets By Mouth Every day Contact prescribing physician if questions or concerns Unchanged insulin glargine (Lantus) Subcutaneous Every day Contact prescribing physician if questions or concerns Unchanged metoprolol (Metoprolol tartrate 25 mg Tab) 1 Tablets By Mouth 2 times a day Contact prescribing physician if questions or concerns Unchanged Misc Prescription (INSULIN SUPPLIES) See instructions 1. KWIK PEN NEEDLES QID # 120 Contact prescribing physician if questions or concerns Unchanged rosuvastatin (Crestor) 20 Milligram By Mouth Once a day (at bedtime) Contact prescribing physician if questions or concerns Unchanged spironolactone (spironolactone 25 mg Tab) Contact prescribing physician if questions or concerns Unchanged warfarin (Coumadin 2.5 mg Tab) See instructions take 2.5 mg on wed and wednesday Contact prescribing physician if questions or concerns Unchanged warfarin (Coumadin 5 mg Tab) See instructions take 5 mg on [id number]-[id number]. Take 2.5 mg all other days Contact prescribing physician if questions or concerns Test Results Urnls Dip Stick Auto w/o Microscopy POC 64426 (12/01/2022) Bilirubin Urine Dipstick - Negative Blood Urine Dipstick - Trace-intact Glucose Urine Dipstick - 2+ 500 mg/dl Ketones Urine Dipstick - Negative Leukocytes Urine Dipstick - Trace Nitrite Urine Dipstick - Negative Protein Urine Dipstick - 1+ (30 mg/dl) Specific Merrill Urine Dipstick - 1.015 Urine Appearance Urine Dipstick - Clear Urine Color Urine Dipstick - Yellow Urobilinogen Urine Dipstick - Normal 0.2-1 EU/dl pH Urine Dipstick - 6 Allergies No Known Allergies Problems Ongoing - Any problem that you are currently receiving treatment for. Balanitis BPH with urinary obstruction CVA (cerebrovascular accident) Dysuria Hyperlipidemia Hypertension Prostatitis Protein in urine Urinary retention Weak urine stream Historical - Any problem that you are no longer receiving treatment for. AF - Atrial fibrillation Basal cell carcinoma Benign essential hypertension Diabetic care Hyperlipidemia Renal insufficiency Education Materials Benign Prostatic Hyperplasia Benign prostatic hyperplasia (BPH) is an enlarged prostate gland that is caused by the normal aging process. The prostate may get bigger as a man gets older. The condition is not caused by cancer. The prostate is a walnut-sized gland that is inv (more content not included)... Normal [facility] Patient Educationon 12-02-19 23 Patient Education Urology Benign Prostatic Hyperplasia Benign prostatic hyperplasia (BPH) is an enlarged prostate gland that is caused by the normal aging process. The prostate may get bigger as a man gets older. The condition is not caused by cancer. The prostate is a walnut-sized gland that is involved in the production of semen. It is located in front of the rectum and below the bladder. The bladder stores urine. The urethra carries stored urine out of the body. An enlarged prostate can press on the urethra. This can make it harder to pass urine. The buildup of urine in the bladder can cause infection. Back pressure and infection may progress to bladder damage and kidney (renal) failure. What are the causes? This condition is part of the normal aging process. However, not all men develop problems from this condition. If the prostate enlarges away from the urethra, urine flow will not be blocked. If it enlarges toward the urethra and compresses it, there will be problems passing urine. What increases the risk? This condition is more likely to develop in men older than 50 years. What are the signs or symptoms? Symptoms of this condition include: ? Getting up often during the night to urinate. ? Needing to urinate frequently during the day. ? Difficulty starting urine flow. ? Decrease in size and strength of your urine stream. ? Leaking (dribbling) after urinating. ? Inability to pass urine. This needs immediate treatment. ? Inability to completely empty your bladder. ? Pain when you pass urine. This is more common if there is also an infection. ? Urinary tract infection (UTI). How is this diagnosed? This condition is diagnosed based on your medical history, a physical exam, and your symptoms. Tests will also be done, such as: ? A post-void bladder scan. This measures any amount of urine that may remain in your bladder after you finish urinating. ? A digital rectal exam. In a rectal exam, your health care provider checks your prostate by putting a lubricated, gloved finger into your rectum to feel the back of your prostate gland. This exam detects the size of your gland and any abnormal lumps or growths. ? An exam of your urine (urinalysis). ? A prostate specific antigen (PSA) screening. This is a blood test used to screen for prostate cancer. ? An ultrasound. This test uses sound waves to electronically produce a picture of your prostate gland. Your health care provider may refer you to a specialist in kidney and prostate diseases (urologist). How is this treated? Once symptoms begin, your health care provider will monitor your condition (active surveillance or watchful waiting). Treatment for this condition will depend on the severity of your condition. Treatment may include: ? Observation and yearly exams. This may be the only treatment needed if your condition and symptoms are mild. ? Medicines to relieve your symptoms, including: ? Medicines to shrink the prostate. ? Medicines to relax the muscle of the prostate. ? Surgery in severe cases. Surgery may include: ? Prostatectomy. In this procedure, the prostate tissue is removed completely through an open incision or with a laparoscope or robotics. ? Transurethral resection of the prostate (TURP). In this procedure, a tool is inserted through the opening at the tip of the penis (urethra). It is used to cut away tissue of the inner core of the prostate. The pieces are removed through the same opening of the penis. This removes the blockage. ? Transurethral incision (TUIP). In this procedure, small cuts are made in the prostate. This lessens the prostate's pressure on the urethra. ? Transurethral microwave thermotherapy (TUMT). This procedure uses microwaves to create heat. The heat destroys and removes a small amount of prostate tissue. ? Transurethral needle ablation (TUNA). This procedure uses radio frequencies to destroy and remove a small amount of prostate tissue. ? Interstitial laser coagulation (ILC). This procedure uses a laser to destroy and remove a small amount of prostate tissue. ? Transurethral electrovaporization (TUVP). This procedure uses electrodes to destroy and remove a small amount of prostate tissue. ? Prostatic urethral lift. This procedure inserts an implant to push the lobes of the prostate away from the urethra. Follow these instructions at home: ? Take [id number]-uxfddpm and prescription medicines only as told by your health care provider. ? Monitor your symptoms for any changes. Contact your health care provider with any changes. ? Avoid drinking large amounts of liquid before going to bed or out in public. ? Avoid or reduce how much caffeine or alcohol you drink. ? Give yourself time when you urinate. ? Keep all follow-up visits. This is important. Contact a health care provider if: ? You have unexplained back pain. ? Your symptoms do not get better with treatment. ? You develop side effects from the medicine (more content not included)... Normal [facility] Provider Letteron 12-01-2022 Provider Letter Kristi Ramos, [address], [address] [place] [address] Re: MCKAYLA LOZANO Date of : [address]Jorden CARREON, Kristi MCKAYLA CRAIG was evaluated at [facility] 12/01/2022 14:38:46 As this patient has been stable and doing well on current regimen, they will be released back to your care. We provided 1 year of refills on the patient?s current urologic medications: TAMSULOSIN 0.4MG 2 TABS DAILY AND FINASTERIDE 5MG 1 TAB DAILY . We would request that moving forward you provide additional refills. Should the patient develop new symptoms or worsening condition in the future, do not hesitate to refer them back. Thanks! Provider Signature: Lora Hernandez PA-C Physician [employer] Operator [facility] [address] [place] [address] Normal [facility] Urology Office/Clinic Noteon 12-01-2022 Urology Office/Clinic Note Chief Complaint 1yr HPI Staff 1yr DX: BPH & Dysuria *Tamsulosin 0.4mg BID and Finasteride 5mg 1x daily. No PSA per [facility]. Spoke to PCP, no record of PSA in their system. Pt states he is satisfied with current urinary symptoms. No concerns at this time. IPSS 6 History of Present Illness staff HPI reviewed and agree. Review of Systems PHQ Score Initial Depression Screen Score: 0 no fever, chills, malaise, myalgia. no rash/lesions. no chest pain, palpitations, or SOB. no abdominal pain, nausea, vomiting. no unilateral calf swelling, redness, pain Physical Exam Vitals & Measurements HR: 68(Peripheral) RR: 16 BP: 130/76 HT: 62 in HT: 157 cm WT: 94.6 kg WT: 208.12 lb BMI: 38.38 General: nontoxic, NAD Mouth: moist mucosa Lungs: normal respiratory effort Cardio: regular rate, good distal perfusion Abdomen: nondistended, no suprapubic distention or tenderness, no CVA tenderness Neurologic: Grossly normal Skin: No rashes or suspicious lesions Assessment/Plan Dr. Page pt here with his today. 1. BPH with urinary obstruction (N40.1: Benign prostatic hyperplasia with lower urinary tract symptoms) S/p Cysto/Urodynamics 01/30/2020. IPSS 6. Taking Finasteride 5mg qd and Tamsulosin 0.4mg bid ( has qd on med list today but we have BID on our Rx in computer, will check med bottle at home call our office if it isn't BID). Denies SEs. We discussed current dose and optional changes: decreasing tamsulosin to QD discontinuing finasteride Briefly discussed with the patient the different surgical treatment options for bladder outlet obstruction including TURP, Rezum, and Urolift. Pt prefers to continue current regimen with no changes at this time. UA shows trace intact hgb and trace leuks but reports it was likely not a clean specimen. Denies any bothersome urinary sxs at this time. Denies UTI sx. offered scheduled follow up vs f/u PRN with urology and continue care with PCP. pt prefers the latter. will send letter to PCP so they are aware of the plan. pt understands if anything worsens or new symptoms arise to contact our office. Follow-up With When Contact Information LORA HERNANDEZ PA-C, URL Only if needed [address] [place] [address] [phone] Additional Instructions: Patient Education Benign Prostatic Hyperplasia Documentation recorded by the ilya Angulo accurately reflects the services(s) I performed and decisions made by me. Authenticated by Lora Hernandez PA-C on 12/01/2022 16:54:21. Leyla Tran, personally scribed for Lora Hernandez PA-C on 12/01/2022 15:27:20. . Problem List/Past Medical History Ongoing Balanitis BPH with urinary obstruction CVA (cerebrovascular accident) Dysuria Hyperlipidemia Hypertension Prostatitis Protein in urine Urinary retention Weak urine stream Historical AF - Atrial fibrillation Basal cell carcinoma Benign essential hypertension Diabetic care Hyperlipidemia Renal insufficiency Procedure/Surgical History LEFT EXPLORATORY TYMPANOTOMY, REPAIR OF PERILYMPHATIC FISTULA (10/27/2017), Rheumatic fever (195), Appendectomy, Cataract extraction, Colonoscopy, Stent. Medications amLODIPine 5 mg Tab, 5 mg= 1 tab(s), Oral, Daily aspirin 81 mg Oral EC Tab, 81 mg= 1 tab(s), Oral, TueFri Coumadin 2.5 mg Tab, See Instructions, 2 refills Coumadin 5 mg Tab, See Instructions, 1 refills Crestor, 20 mg, Oral, Once a day (at bedtime) donepezil 10 mg Tab finasteride 5 mg Tab, 5 mg= 1 tab(s), Oral, Daily, 3 refills Flomax 0.4 mg Cap, 0.4 mg= 1 cap(s), Oral, BID, 3 refills furosemide 40 mg Tab, Oral, Daily glyBURIDE 5 mg Tab, 5 mg= 1 tab(s), Oral, Daily INSULIN SUPPLIES, See Instructions Lantus, SubCutaneous, Daily Metoprolol tartrate 25 mg Tab, 25 mg= 1 tab(s), Oral, BID spironolactone 25 mg Tab Trulicity Pen 0.75 mg/0.5 mL subcutaneous solution, SubCutaneous, qWeek Allergies No Known Allergies Social History Alcohol - Denies Alcohol Use, 10/19/2017 Current, Alcohol use interferes with work or home: No. Drinks more than intended: No. Others hurt by drinking: No. Ready to change: No. Household alcohol concerns: No., 07/02/2017 Alcohol use interferes with work or home: No. Drinks more than intended: No. Others hurt by drinking: No. Ready to change: No. Household alcohol concerns: No., 06/29/2017 Substance Abuse - Denies Substance Abuse, 10/19/2017 Current, IV drug use: No. Drug use interferes with work/home: No. Ready to change: No. Household substance abuse concerns: No., 07/02/2017 Tobacco - Denies Tobacco Use, 10/19/2017 Former smoker, quit more than 30 days ago Tobacco Use:. Never Smokeless Tobacco Use:. Cigars, Ready to change: No. Household tobacco concerns: No. Yes, 12/01/2022 Family History Family history is unknown Immunizations Vaccine Date Status zoster vaccine, inactivated 10/25/2022 Recor (more content not included)... Normal [facility] Comment on above: Result Comment: Elec tronically Signed By: LORA HERNANDEZ PA-C\.br\Date and Time Signed: 12/01/22 16:54 EDT\.br\Electronically Co-Signed By: Leyla Angulo\.br\Date and Time Co-Signed: 12/01/22 15:27 EDT CHEMISTRYOrdered By: Lab ROP User on 10-30-2022 POC Device SN [id number] Invalid Interpretation Code [facility] POC Subsection POC Username CAMILLE PAT Invalid Interpretation Code [facility] POC Subsection Sodium [Moles/Vol] 717361556 mmol/L Invalid Interpretation Code [facility] POC Subsection POCT PT/INRon 10-30-2022 POCT INR 2.2 High .7-1.2 [facility] Comment on above: Performed By: #### 2 [id number] #### [facility] [address] [place] [address] POCT PT 24.2 second(s) High 8.0-15.0 [facility] Comment on above: Performed By: #### 2 [id number] #### [facility] [address] [place] [address] Medication Refillon 10-07-19 Medication Refill Patient: MCKAYLA LOZANO Age: 76 years Sex: Male : 1945 Associated Diagnoses: None Author: Constance Alvarado 5mg Coumadin sent to Pharm. 90 tabs, 1 refill Health Status Allergies: Allergic Reactions (Selected) No Known Allergies, Allergies (1) Active Reaction No Known Allergies None Documented Current medications: (Selected) Prescriptions Prescribed Coumadin 2.5 mg Tab: 2.5 mg = 1 tab(s), Oral, As Directed, take 2.5 mg on wed and wednesday, taking 5 mg on all other days, # 90 tab(s), Refills(s) 1, Pharmacy: [facility] Coumadin 2.5 mg Tab: See Instructions, take 2.5 mg on wed and wednesday, # 90 tab(s), Refills(s) 2, Pharmacy: [facility], 157, cm, 11/04/20 12:43:00 EDT, Height/Length Dosing, 96.2, kg, 11/04/20 12:43:00 EDT, Weight Dosing Coumadin 5 mg Tab: 5 mg = 1 tab(s), Oral, As Directed, take 5 mg every day EXCEPT wed and wednesday, # 90 tab(s), Refills(s) 1, Pharmacy: [facility] Coumadin 5 mg Tab: See Instructions, take 5 mg everday except wed and wednesday, # 90 tab(s), Refills(s) 2, Pharmacy: [facility], 157, cm, 11/04/20 12:43:00 EDT, Height/Length Dosing, 96.2, kg, 11/04/20 12:43:00 EDT, Weight Dosing Coumadin 5 mg Tab: See Instructions, take 5 mg on . Take 2.5 mg all other days, # 90 tab(s), Refills(s) 1, Pharmacy: [facility], 157, cm, 11/26/21 14:13:00 EDT, Height/Length Dosing, 94.6, kg, 11/26/21 14:13:00 EDT, Weight Dosing Flomax 0.4 mg Cap: 0.4 mg = 1 cap(s), Oral, BID, # 180 cap(s), Refills(s) 3, Pharmacy: [facility], 157, cm, 11/26/21 14:13:00 EDT, Height/Length Dosing, 94.6, kg, 11/26/21 14:13:00 EDT, Weight Dosing INSULIN SUPPLIES: INSULIN SUPPLIES, See Instructions, 1 EA, 0, 1. KWIK PEN NEEDLES QID # 120, [facility], Supply, 158, cm, 11/08/19 9:19:00 EDT, Height/Length Dosing, 93.9, kg, 11/08/19 9:19:00 EDT, Weight Dosing finasteride 5 mg Tab: 5 mg = 1 tab(s), Oral, Daily, # 90 tab(s), Refills(s) 3, Pharmacy: [facility], 157, cm, 11/26/21 14:13:00 EDT, Height/Length Dosing, 94.6, kg, 11/26/21 14:13:00 EDT, Weight Dosing Documented Medications Documented Crestor: 20 mg, Oral, Once a day (at bedtime), Refills(s) 0 Lantus: SubCutaneous, Daily, Refills(s) 0 Metoprolol tartrate 25 mg Tab: 25 mg = 1 tab(s), Oral, BID, Irregular heartbeat Trulicity Pen 0.75 mg/0.5 mL subcutaneous solution: SubCutaneous, qWeek, Refills(s) 0 amLODIPine 5 mg Tab: 5 mg = 1 tab(s), Oral, Daily, Refills(s) 0 aspirin 81 mg Oral EC Tab: 81 mg = 1 tab(s), Oral, TueFri, Refills(s) 0, Blood Thinner furosemide 40 mg Tab: mg tab(s), Oral, Daily, Refills(s) 0 glyBURIDE 5 mg Tab: 5 mg = 1 tab(s), Oral, Daily, Refills(s) 0, Home Medications (16) Active amLODIPine 5 mg Tab 5 mg = 1 tab(s), Oral, Daily aspirin 81 mg Oral EC Tab 81 mg = 1 tab(s), Oral, TueFri Coumadin 2.5 mg Tab 2.5 mg = 1 tab(s), Oral, As Directed Coumadin 2.5 mg Tab See Instructions Coumadin 5 mg Tab 5 mg = 1 tab(s), Oral, As Directed Coumadin 5 mg Tab See Instructions Coumadin 5 mg Tab See Instructions Crestor 20 mg, Oral, Once a day (at bedtime) finasteride 5 mg Tab 5 mg = 1 tab(s), Oral, Daily Flomax 0.4 mg Cap 0.4 mg = 1 cap(s), Oral, BID furosemide 40 mg Tab , Oral, Daily glyBURIDE 5 mg Tab 5 mg = 1 tab(s), Oral, Daily INSULIN SUPPLIES See Instructions Lantus , SubCutaneous, Daily Metoprolol tartrate 25 mg Tab 25 mg = 1 tab(s), Oral, BID Trulicity Pen 0.75 mg/0.5 mL subcutaneous solution , SubCutaneous, qWeek , No qualifying data available Problem list: All Problems Balanitis / SNOMED CT 28326610 / Confirmed BPH with urinary obstruction / SNOMED CT 9795722130 / Confirmed CVA (cerebrovascular accident) / SNOMED CT 873815868 / Confirmed CAD (coronary artery disease) / SNOMED CT 81790970 / Confirmed Diabetes / SNOMED CT 442852287 / Confirmed Dysuria / SNOMED CT 47584299 / Confirmed Hyperlipidemia / SNOMED CT 80961948 / Confirmed Hypertension / SNOMED CT 1154758584 / Confirmed MHL (mixed hearing loss) / SNOMED CT 079719128 / Confirmed left Weak urine stream / SNOMED CT 386600455 / Confirmed Prostatitis / SNOMED CT 51905576 / Confirmed Protein in urine / SNOMED CT 76775155 / Confirmed Urinary retention / SNOMED CT 058090542 / Confirmed, Active Problems (13) Balanitis BPH with urinary obstruction CAD (coronary artery disease) CVA (cerebrovascular accident) Diabetes Dysuria Hyperlipidemia Hypertension MHL (mixed hearing loss) Prostatitis Protein in urine Urinary retention Weak urine stream Objective No qualifying data available Normal [facility] POCT PT/INRon 09-18-2022 POCT INR 2.2 High .7-1.2 [facility] Comment on above: Performed By: #### 2 [id number] #### [facility] [address] [place] [address] POCT PT 24.0 second(s) High 8.0-15.0 [facility] Comment on above: Performed By: #### 2 [id number] #### [facility] [address] [place] [address] PROTEIN, TOTAL AND PROTEIN E LECTROPHORESIS, RANDOM URINEon 08-26-2022 ALBUMIN 48 % Normal [facility] Comment on above: Performed By: #### 1 [id number], 5347 #### [facility] [address], [address] [place] [address] Social Science Research Assistant: Manjeet Ferguson MD [id number] 4 % Normal [facility] Comment on above: Performed By: #### 1 9094, 7962 #### [facility] [address], [address] [place] [address] Social Science Research Assistant: Manjeet Ferguson MD [id number] 16 % Normal [facility] Comment on above: Performed By: #### 1 313, 8525 #### [facility] of [address], [address] [place] [address] Social Science Research Assistant: Manjeet Ferguson MD BETA GLOBULINS 15 % Normal [facility] Comment on above: Performed By: #### 1 313, 8525 #### [facility] of [address], [address] [place] [address] Social Science Research Assistant: Manjeet Ferguson MD Creatinine (U) [Mass/Vol] 34 mg/dL Normal 20-320 [facility] Comment on above: Performed By: #### 1 313, 8525 #### [facility] of [address], [address] [place] [address] Social Science Research Assistant: Manjeet Ferguson MD GAMMA GLOBULINS 17 % Normal [facility] Comment on above: Performed By: #### 1 313, 8525 #### [facility] of [address], [address] [place] [address] Social Science Research Assistant: Manjeet Ferguson MD INTERPRETATION Normal [facility] Comment on above: Result Comment: Pattern consistent with mixed glomerular and tubular proteinuria. Performed By: #### 1 313, 8525 #### [facility] of [address], [address] [place] [address] Social Science Research Assistant: Manjeet Ferguson MD Protein (U) [Mass/Vol] 27 mg/dL High 5-25 [facility] Comment on above: Performed By: #### 1 313, 8525 #### [facility] of [address], [address] [place] [address] Social Science Research Assistant: Manjeet Ferguson MD PROTEIN/CREATININE RATIO 794 mg/g creat High 25-148 [facility] Comment on above: Performed By: #### 1 031, 8525 #### [facility] of [address], [address] [place] [address] Social Science Research Assistant: Manjeet Ferguson MD PROTEIN/CREATININE RATIO 0.794 mg/mg creat High 0.025-0.148 [facility] Comment on above: Performed By: #### 1 313, 8525 #### [facility] [place] [address] Social Science Research Assistant: Manjeet Ferguson MD RENAL FUNCTION PANEL 08-26 Albumin [Mass/Vol] 4.2 g/dL Normal 3.6-5.1 [facility] Comment on above: Performed By: #### 1 313, 8525 #### [facility] [place] [address] Social Science Research Assistant: Manjeet Ferguson MD Calcium [Mass/Vol] 9.2 mg/dL Normal 8.6-10.3 [facility] Comment on above: Performed By: #### 1 031, 8525 #### [facility] [place] [address] Social Science Research Assistant: Manjeet Ferguson MD Chloride [Moles/Vol] 100 mmol/L Normal 98-110 [facility] Comment on above: Performed By: #### 1 313, 8525 #### [facility] [place] [address] Social Science Research Assistant: Manjeet Ferguson MD CO2 [Moles/Vol] 23 mmol/L Normal 20-32 [facility] Comment on above: Performed By: #### 1 313, 8525 #### [facility] [place] [address] Social Science Research Assistant: Manjeet Ferguson MD Creatinine [Mass/Vol] 2.16 mg/dL High 0.70-1.[address] [facility] Comment on above: Performed By: #### 1 313, 8525 #### [facility] [place] [address] Social Science Research Assistant: Manjeet Ferguson MD GFR/1.73 sq M.predicted among non-blacks MDRD (S/P/Bld) [Vol rate/Area] 31 mL/min/{1.73_m2} Low > OR = 60 [facility] Comment on above: Result Comment: The eGFR is based on the CKD-EPI 2020 equation. To calculate the new eGFR from a previous Creatinine or Cystatin C result, go to https://www.kidney.org/professionals/ kdoqi/gfr%5Fcalculator Performed By: #### 1 031, 8525 #### [facility] [place] [address] Social Science Research Assistant: Manjeet Ferguson MD Glucose [Mass/Vol] 185 mg/dL High 65-99 [facility] Comment on above: Result Comment: Fasting reference interval For someone without known diabetes, a glucose value >125 mg/dL indicates that they may have diabetes and this should be confirmed with a follow-up test. Performed By: #### 1 031, 8525 #### [facility] [place] [address] Social Science Research Assistant: Manjeet Ferguson MD Phosphate [Mass/Vol] 3.9 mg/dL Normal 2.1-4.3 [facility] Comment on above: Performed By: #### 1 313, 8525 #### [facility] [place] [address] Social Science Research Assistant: Manjeet Ferguson MD Potassium [Moles/Vol] 4.4 mmol/L Normal 3.5-5.[address] [facility] Comment on above: Performed By: #### 1 313, 8525 #### [facility] [place] [address] Social Science Research Assistant: Manjeet Ferguson MD Sodium [Moles/Vol] 135 mmol/L Normal 135-146 [facility] Comment on above: Performed By: #### 1 031, 8525 #### [facility] [place] [address] Social Science Research Assistant: Manjeet Ferguson MD Urea nitrogen [Mass/Vol] 56 mg/dL High 7-25 [facility] Comment on above: Performed By: #### 1 031, 8525 #### [facility] [address] [place] [address] Social Science Research Assistant: Manjeet Ferguson MD Urea nitrogen/Creatinine [Mass ratio] 26 mg/mg High 6 [facility] Comment on above: Performed By: #### 1 2484, 8513 #### [facility] [facility] [address] [place] [address], [address] [place] [address] Social Science Research Assistant: Manjeet Ferguson MD POCT PT/INRon 08-14-2022 POCT INR 2.5 High .7-1.2 [facility] Comment on above: Performed By: #### 2 [id number] #### [facility] [address] [place] [address] POCT PT 26.9 second(s) High 8.0-15.0 [facility] Comment on above: Performed By: #### 2 [id number] #### [facility] [address] [place] [address] POCT PT/INRon 07-21-2022 POCT INR 2.3 High .7-1.2 [facility] Comment on above: Performed By: #### 2 [id number] #### [facility] [address] [place] [address] POCT PT 25.4 second(s) High 8.0-15.0 [facility] Comment on above: Performed By: #### 2 [id number] #### [facility] [address] [place] [address] POCT PT/INRon 07-07-2022 POCT INR 1.6 High .7-1.2 [facility] Comment on above: Performed By: #### 2 [id number] #### [facility] [address] [place] [address] POCT PT 18.1 second(s) High 8.0-15.0 [facility] Comment on above: Performed By: #### 2 [id number] #### [facility] [address] [place] [address] POCT INR Error Invalid Interpretation Code .7-1.2 [facility] Comment on above: Performed By: #### 2 [id number] #### [facility] [address] [place] [address] POCT PT Strip Error Invalid Interpretation Code 8.0-15.0 [facility] Comment on above: Performed By: #### 2 [id number] #### [facility] [address] [place] [address] Bacteria identified Aer cx N om (Unsp spec)Ordered By: Becky Dupont on 01-14-2022 Superficial Wound Culture Staphylococcus aureus [facility] Superficial Wound Culture Escherichia coli [facility] Bacteria identified Aer cx N om (Unsp spec)Ordered By: Brian Pradhan on 12-25-2021 Superficial Wound Culture Staphylococcus aureus [facility] Office Visit (Cardiology)on 12-03-2021 Follow-up visit Diagnoses/Problems Assessed Permanent atrial fibrillation (427.31) (I48.21) Hyperlipidemia (272.4) (E78.5) Hypertension (401.9) (I10) Never a smoker Shortness of breath (786.05) (R06.02) Single vessel coronary disease (414.00) (I25.10) Class 2 severe obesity with serious comorbidity and body mass index (BMI) of 36.0 to 36.9 in adult (278.01,V85.36) (E66.01,Z68.36) High risk medication use (V58.69) (Z79.899) Orders Class 2 severe obesity with serious comorbidity and body mass index (BMI) of 36.0 to 36.9 in adult Healthy Weight Tips; Status:Complete - Retrospective Authorization; Done: 03Dec2021 Some eating tips that can help you lose weight.; Status:Complete - Retrospective Authorization; Done: 03Dec2021 Permanent atrial fibrillation Continue with our present treatment plan.; Status:Complete - Retrospective Authorization; Done: 03Dec2021 IO EKG Electrocardiogram- 12 Lead; Status:Complete; Done: 03Dec2021 Single vessel coronary disease Renew: Aspirin EC 81 MG Oral Tablet Delayed Release; 1 tablet on and fridays SocHx: Never a smoker Tobacco Use Screening; Status:Complete; Done: 03Dec2021 Patient Instructions Please bring all medicines, vitamins, and herbal supplements with you when you come to the office. Prescriptions will not be filled unless you are compliant with your follow up appointments or have a follow up appointment scheduled as per instruction of your physician. Refills should be requested at the time of your visit. Follow up in 9] months with EKG Chief Complaint MCKAYLA LOZANO is being seen for a 6 month follow-up of. History of Present Illness Here for follow-up continue management for chronic permanent atrial fibrillation, long-term anticoagulation, coronary artery disease, hypertension and obesity. Since last time I saw him described functional class II. He denies complaint of chest pain, palpitation, lightheadedness, dizziness or syncope. He remains reasonably active. His recent lab work noted and reviewed with him. ASSESSMENT: 1. Chronic permanent atrial fibrillation. Failed long-term amiodarone therapy. Had been treated with heart rate control on long-term anticoagulation 2. Long-term anticoagulation with Coumadin. Tolerating that well without any side effect 3. Probable sleep apnea. Patient declined evaluation 4. coronary artery disease with remote percutaneous coronary left circumflex and marginal 5. Hypertension controlled 6. Obesity with minor weight loss 7. Minor shortness of breath unchanged from before 8. Hyperlipidemia on rosuvastatin. LDL is 51 triglyceride mildly elevated 9. 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 We discussed treatment option at great length.. Patient elected for heart rate control on long-term anticoagulation 2. The patient was counseled regarding losing weight, exercise, and risk factor adjustment. 3. I encouraged the patient to restrict his salt intake 4. I discussed again with him switching to one of the newer agent like Eliquis or Xarelto patient stated he is comfortable with Coumadin and would like to stay on the 5. I reviewed his recent lab with him 6. We discussed sleep evaluation but the patient want to defer for now 7. We will see him in 9 months with an EKG Surgical History Problems History of Appendectomy History of Cardioversion History of Colonoscopy 16Feb2004 History of Ear surgery Left Past Medical History Problems History of diabetes mellitus (V12.29) (Z86.39) History of high blood pressure (V12.59) (Z86.79) History of high cholesterol (V12.29) (Z86.39) History of kidney disease (V13.09) (Z87.448) History of skin cancer (V10.83) (Z85.828) History of snoring (V15.89) (Z87.898) Current Meds Medication NameInstruction Aspirin EC 81 MG Oral Tablet Delayed Release1 tablet on and fridays Finasteride 5 MG Oral TabletTake 1 tablet twice daily glyBURIDE 5 MG Oral TabletTAKE 1 TABLET TWICE DAILY, WITH MORNING AND EVENING MEAL Lantus SOLNUSE DIRECTED. Metoprolol Tartrate 25 MG Oral TabletTAKE 1 TABLET TWICE DAILY. Rosuvastatin Calcium 40 MG Oral TabletTAKE 1 TABLET DAILY. Spironolactone 25 MG Oral TabletTAKE 1 TABLET DAILY. Tamsulosin HCl - 0.4 MG Oral CapsuleTake 1 capsule twice daily Trulicity 0.75 MG/0.5ML Subcutaneous Solution Pen-injectorUSE DIRECTED Warfarin Sodium 2.5 MG Oral Tabletdirected by [facility] Patient did not bring medication list or bottles. Updated verbally with patient Allergies Medication No Known Drug Allergies Recorded By: Ronel Garcia; 01/20/2018 9:06:52 AM NonMedication No Known Environmental Allergies Recorded By: Ronel Garcia; 01/20/2018 9:06:52 AM No Known Food Allergies Recorded By: Ronel Garcia; 01/20/2018 9:06:52 AM Social History Problems Daily consumption of alcohol (V49.89) (Z78.9) Never a smoker No illicit drug use Occasional caffeine c (more content not included)... Normal [employer] Tobacco Screening.on 022 Adult depression screening assessment No [facility] [employer] DO Work Phone: Fall risk assessment a) No falls within the last year [facility] [employer] DO Work Phone: Tobacco use status [facility] b) No [facility] [employer] DO Work Phone: ALBUMIN, RANDOM URINE W/CREA Rose Marie 09-16-2021 ALBUMIN, URINE 6.2 mg/dL Normal See Note: [facility] Comment on above: Result Comment: Refe rence Range: Reference Range Not established Performed By: #### 6 517, 03042, 88610, 7909, 1715 #### [facility] [place] [address] Social Science Research Assistant: Manjeet Ferguson MD ALBUMIN/CREATININE RATIO, RANDOM URINE 102 mcg/mg creat High <30 [facility] Comment on above: Result Comment: The ADA defines abnormalities in albumin excretion as follows: Albuminuria Category Result (mcg/mg creatinine) Normal to Mildly increased <30 Moderately increased 30-299 Severely increased > OR = 300 The ADA recommends that at least two of three specimens collected within a 3-6 month period be abnormal before considering a patient to be within a diagnostic category. Performed By: #### 6 517, 93620, 04001, 7909, 1715 #### [facility] [place] [address] Social Science Research Assistant: Manjeet Ferguson MD Creatinine (U) [Mass/Vol] 61 mg/dL Normal 20-320 [facility] Comment on above: Performed By: #### 6 517, 36689, 53869, 7909, 1715 #### [facility] [place] [address] Social Science Research Assistant: Manjeet Ferguson MD [facility] 09-16-2021 Albumin [Mass/Vol] 4.2 g/dL Normal 3.6-5.1 [facility] Comment on above: Performed By: #### 6 517, 47315, 28450, 7909, 1715 #### [facility] [place] [address] Social Science Research Assistant: Manjeet Ferguson MD Albumin/Globulin [Mass ratio] 1.6 {ratio} Normal 1.0-2.5 [facility] Comment on above: Performed By: #### 6 517, 04259, 64099, 7909, 1715 #### [facility] [place] [address] Social Science Research Assistant: Manjeet Ferguson MD ALP [Catalytic activity/Vol] 75 U/L Normal 35-144 [facility] Comment on above: Performed By: #### 6 517, 83436, 95175, 7909, 1715 #### [facility] of [address], [address] [place] [address] Social Science Research Assistant: Manjeet Ferguson MD ALT [Catalytic activity/Vol] 22 U/L Normal 9-46 [facility] Comment on above: Performed By: #### 6 517, 37528, 18993, 7909, 1715 #### [facility] of [address], [address] [place] [address] Social Science Research Assistant: Manjeet Ferguson MD AST [Catalytic activity/Vol] 18 U/L Normal 10-35 [facility] Comment on above: Performed By: #### 6 517, 87886, 32845, 7909, 1715 #### [facility] of [place] [address] Social Science Research Assistant: Manjeet Ferguson MD Bilirubin [Mass/Vol] 0.6 mg/dL Normal 0.2-1.2 [facility] Comment on above: Performed By: #### 6 517, 50506, 84799, 7909, 1715 #### [facility] of [place] [address] Social Science Research Assistant: Manjeet Ferguson MD Calcium [Mass/Vol] 8.9 mg/dL Normal 8.6-10.3 [facility] Comment on above: Performed By: #### 6 517, 82855, 43882, 7909, 1715 #### [facility] of [place] [address] Social Science Research Assistant: Manjeet Ferguson MD Chloride [Moles/Vol] 102 mmol/L Normal 98-110 [facility] Comment on above: Performed By: #### 6 517, 80899, 78854, 7909, 1715 #### [facility] of [place] [address] Social Science Research Assistant: Manjeet Ferguson MD CO2 [Moles/Vol] 26 mmol/L Normal 20-32 [facility] Comment on above: Performed By: #### 6 517, 13853, 67351, 7909, 1715 #### [facility] of [address], [address] [place] [address] Social Science Research Assistant: Manjeet Ferguson MD Creatinine [Mass/Vol] 1.94 mg/dL High 0.70-1.[address] [facility] Comment on above: Performed By: #### 6 517, 50354, 21045, 7909, 1715 #### [facility] [place] [address] Social Science Research Assistant: Manjeet Ferguson MD GFR/1.73 sq M.predicted among non-blacks MDRD (S/P/Bld) [Vol rate/Area] 35 mL/min/{1.73_m2} Low > OR = 60 [facility] Comment on above: Result Comment: The eGFR is based on the CKD-EPI 2020 equation. To calculate the new eGFR from a previous Creatinine or Cystatin C result, go to https://www.kidney.org/professionals/ kdoqi/gfr%5Fcalculator Performed By: #### 6 517, 30706, 56125, 7909, 1715 #### [facility] [place] [address] Social Science Research Assistant: Manjeet Ferguson MD Globulin (S) [Mass/Vol] 2.6 g/dL Normal 1.9-3.7 [facility] Comment on above: Performed By: #### 6 517, 39609, 67860, 7909, 1715 #### [facility] [place] [address] Social Science Research Assistant: Manjeet Ferguson MD Glucose [Mass/Vol] 75 mg/dL Normal 65-99 [facility] Comment on above: Result Comment: Fasting reference interval Performed By: #### 6 517, 54991, 89371, 7909, 1715 #### [facility] [place] [address] Social Science Research Assistant: Manjeet Ferguson MD Potassium [Moles/Vol] 3.9 mmol/L Normal 3.5-5.[address] [facility] Comment on above: Performed By: #### 6 517, 45628, 81112, 7909, 1715 #### [facility] of [address], [address] [place] [address] Social Science Research Assistant: Manjeet Ferguson MD Protein [Mass/Vol] 6.8 g/dL Normal 6.1-8.1 [facility] Comment on above: Performed By: #### 6 517, 05940, 04242, 7909, 1715 #### [facility] of [address], [address] [place] [address] Social Science Research Assistant: Manjeet Ferguson MD Sodium [Moles/Vol] 137 mmol/L Normal 135-146 [facility] Comment on above: Performed By: #### 6 517, 58358, 79493, 7909, 1715 #### [facility] of [place] [address] Social Science Research Assistant: Manjeet Ferguson MD Urea nitrogen [Mass/Vol] 39 mg/dL High 7-25 [facility] Comment on above: Performed By: #### 6 517, 22731, 53480, 7909, 1715 #### [facility] of [place] [address] Social Science Research Assistant: Manjeet Ferguson MD Urea nitrogen/Creatinine [Mass ratio] 20 mg/mg Normal 6-22 [facility] Comment on above: Performed By: #### 6 517, 66364, 78131, 7909, 1715 #### [facility] of [place] [address] Social Science Research Assistant: Manjeet Ferguson MD NOTEon 09-16-2021 NOTE Normal [facility] Comment on above: Result Comment: This urine was analyzed for the presence of WBC, RBC, bacteria, casts, and other formed elements. Only those elements seen were reported. Your request to have a duplicate copy faxed has been acknowledged. Queued to: [id number] Performed By: #### 6 517, 49636, 92391, 7909, 1715 #### [facility] of [address], [address] [place] [address] Social Science Research Assistant: Manjeet Ferguson MD PROTEIN, TOTAL W/CREAT, RAND OM URINEon 09-16-2021 Protein (U) [Mass/Vol] 21 mg/dL Normal 5-25 [facility] Comment on above: Performed By: #### 6 517, 16624, 42166, 7909, 1715 #### [facility] of [address], [address] [place] [address] Social Science Research Assistant: Manjeet Ferguson MD PROTEIN/CREATININE RATIO 344 mg/g creat High 22-128 [facility] Comment on above: Performed By: #### 6 517, 40703, 60111, 7909, 1715 #### [facility] of [place] [address] Social Science Research Assistant: Manjeet Ferguson MD PROTEIN/CREATININE RATIO 0.344 mg/mg creat High 0.022-0.128 [facility] Comment on above: Performed By: #### 6 517, 82084, 69983, 7909, 1715 #### [facility] of [address], [address] [place] [address] Social Science Research Assistant: Manjeet Ferguson MD RENAL FUNCTION PANELon 09-16 Phosphate [Mass/Vol] 3.6 mg/dL Normal 2.1-4.3 [facility] Comment on above: Performed By: #### 6 517, 39587, 83664, 7909, 1715 #### [facility] of [place] [address] Social Science Research Assistant: Manjeet Ferguson MD URINALYSIS REFLEXon 09-17-19 22 Appearance (U) CLEAR Normal CLEAR [facility] Comment on above: Performed By: #### 6 517, 95232, 64163, 7909, 1715 #### [facility] of [place] [address] Social Science Research Assistant: Manjeet Ferguson MD BACTERIA NONE SEEN Normal NONE SEEN [facility] Comment on above: Performed By: #### 6 517, 06981, 19660, 7909, 1715 #### [facility] of [place] [address] Social Science Research Assistant: Manjeet Ferguson MD Bilirubin Ql (U) Negative Normal NEGATIVE [facility] Comment on above: Performed By: #### 6 517, 23322, 49679, 7909, 1715 #### [facility] of [place] [address] Social Science Research Assistant: Manjeet Ferguson MD Color (U) YELLOW Normal YELLOW [facility] Comment on above: Performed By: #### 6 517, 34853, 96993, 7909, 1715 #### [facility] of [place] [address] Social Science Research Assistant: Manjeet Ferguson MD Glucose Ql (U) Negative Normal NEGATIVE [facility] Comment on above: Performed By: #### 6 517, 44187, 25572, 7909, 1715 #### [facility] of [place] [address] Social Science Research Assistant: Manjeet Ferguson MD HYALINE CAST NONE SEEN Normal NONE SEEN [facility] Comment on above: Performed By: #### 6 517, 98989, 89986, 7909, 1715 #### [facility] of [place] [address] Social Science Research Assistant: Manjeet Ferguson MD Ketones Ql (U) Negative Normal NEGATIVE [facility] Comment on above: Performed By: #### 6 517, 55724, 29408, 7909, 1715 #### [facility] of [place] [address] Social Science Research Assistant: Manjeet Ferguson MD Leukocyte esterase Test strip Ql (U) Negative Normal NEGATIVE [facility] Comment on above: Performed By: #### 6 517, 77261, 49452, 7909, 1715 #### [facility] of [place] [address] Social Science Research Assistant: Manjeet Ferguson MD Nitrite Ql (U) Negative Normal NEGATIVE [facility] Comment on above: Performed By: #### 6 517, 59462, 78406, 7909, 1715 #### [facility] of [address] [place] [address] Social Science Research Assistant: Manjeet Ferguson MD OCCULT BLOOD Negative Normal NEGATIVE [facility] Comment on above: Performed By: #### 6 517, 42953, 40651, 7909, 1715 #### [facility] of [place] [address] Social Science Research Assistant: Manjeet Ferguson MD pH (U) 6.0 [pH] Normal 5.0-8.0 [facility] Comment on above: Performed By: #### 6 517, 31573, 83286, 7909, 1715 #### [facility] of [place] [address] Social Science Research Assistant: Manjeet Ferguson MD Protein Ql (U) TRACE Abnormal NEGATIVE [facility] Comment on above: Performed By: #### 6 517, 15876, 43484, 7909, 1715 #### [facility] of [place] [address] Social Science Research Assistant: Manjeet Ferguson MD RBC NONE SEEN Normal < OR = 2 [facility] Comment on above: Performed By: #### 6 517, 39722, 52492, 7909, 1715 #### [facility] of [place] [address] Social Science Research Assistant: Manjeet Ferguson MD Specific gravity (U) [Rel density] 1.011 Normal 1.001-1.035 [facility] Comment on above: Performed By: #### 6 517, 48101, 29846, 7909, 1715 #### [facility] of [place] [address] Social Science Research Assistant: Manjeet Ferguson MD SQUAMOUS EPITHELIAL CELLS 0-5 Normal < OR = 5 [facility] Comment on above: Performed By: #### 6 517, 75779, 28063, 7909, 1715 #### [facility] of [place] [address] Social Science Research Assistant: Manjeet Ferguson MD WBC 0-5 Normal < OR = 5 [facility] Comment on above: Performed By: #### 6 517, 03187, 40124, 7909, 1715 #### [facility] [address] [facility], [address] [place] [address] Social Science Research Assistant: Manjeet Ferguson MD CHEMISTRYOrdered By: Camille Pat on 05-27-2021 INR POC FT 3.0 [facility] PT POC FT 35.9 s High 10.8 - 13.6 second(s) [facility] CHEMISTRYOrdered By: Christine De León on 04-22-2021 INR POC FT 2.0 [facility] PT POC FT 24.2 s High 10.8 - 13.6 second(s) [facility] CHEMISTRYOrdered By: Christine De León on 03-28-2021 INR POC FT 1.9 [facility] PT POC FT 23.3 s High 10.8 - 13.6 second(s) [facility] Office Visit (Cardiology)on 02-27-2021 Follow-up visit Diagnoses/Problems Assessed Permanent atrial fibrillation (427.31) (I48.21) Single vessel coronary disease (414.00) (I25.10) Shortness of breath (786.05) (R06.02) Hyperlipidemia (272.4) (E78.5) Hypertension (401.9) (I10) Never a smoker Class 2 obesity with body mass index (BMI) of 36.0 to 36.9 in adult (278.00,V85.36) (E66.9,Z68.36) Orders Class 2 obesity with body mass index (BMI) of 36.0 to 36.9 in adult Healthy Weight Tips; Status:Complete - Retrospective Authorization; Done: 27Feb2021 High risk medication use, Permanent atrial fibrillation Basic Metabolic Panel; Status:Active - Retrospective Authorization; Requested for:27Feb2021; Complete Blood Count; Status:Active - Retrospective Authorization; Requested for:27Feb2021; Hyperlipidemia, Single vessel coronary disease Renew: Rosuvastatin Calcium 40 MG Oral Tablet; TAKE 1 TABLET DAILY ALT - Alanine Aminotransferase, Serum; Status:Active - Retrospective Authorization; Requested for:27Feb2021; AST; Status:Active - Retrospective Authorization; Requested for:27Feb2021; Lipid Panel; Status:Active - Retrospective Authorization; Requested for:27Feb2021; Permanent atrial fibrillation Continue with our present treatment plan.; Status:Complete - Retrospective Authorization; Done: 27Feb2021 IO EKG Electrocardiogram- 12 Lead; Status:Complete; Done: 27Feb2021 Single vessel coronary disease Renew: Aspirin EC 81 MG Oral Tablet Delayed Release; 1 tablet on and fridays SocHx: Never a smoker Tobacco Use Screening; Status:Complete; Done: 27Feb2021 Follow up in [9 ] months Patient Instructions By signing my name below, Catalina Tran Lpn, Scribe, attest that this documentation has been prepared under the direction and in the presence of Dr. Leola Stark MD. All medical record entries made by the Adelineibe were at my direction and personally dictated by me. I have reviewed the chart and agree that the record accurately reflects my personal performance of the history, physical exam, discussion and plan. Please bring all medicines, vitamins, and herbal supplements with you when you come to the office. Prescriptions will not be filled unless you are compliant with your follow up appointments or have a follow up appointment scheduled as per instruction of your physician. Refills should be requested at the time of your visit. Chief Complaint MCKAYLA LOZANO is being seen for a 6 month follow-up of. History of Present Illness Patient is here for follow-up continue management for chronic atrial fibrillation, long-term anticoagulation, coronary artery disease with remote PCI, hypertension and obesity. Since last time I saw him he described mild shortness of breath and lower extremity edema unchanged from before. He denies chest pain, palpitation, lightheadedness, dizziness or syncope. Is compliant with his medication. ASSESSMENT: 1. Chronic permanent atrial fibrillation. Failed long-term amiodarone therapy. Had been treated with heart rate control on long-term anticoagulation 2. Long-term anticoagulation with Coumadin. Tolerating that well without any side effect 3. Probable sleep apnea pain evaluation 4. coronary artery disease with remote percutaneous coronary left circumflex and marginal 5. Hypertension controlled 6. Obesity with no weight changes 7. Minor shortness of breath unchanged from before 8. Hyperlipidemia on combination therapy no recent lab available to review 9. 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 We discussed treatment option at great length.. Patient elected for heart rate control on long-term anticoagulation 2. The patient was counseled regarding losing weight, exercise, and risk factor adjustment. 3. I encouraged the patient to restrict his salt intake 4. I discussed with him switching to one of the newer agent like Eliquis or Xarelto patient stated he is comfortable with Coumadin and would like to stay on the 5. Follow-up in and plan to repeat his lab work as ordered 6. We discussed sleep evaluation but the patient want to defer for now Surgical History Problems History of Appendectomy History of Cardioversion History of Colonoscopy 16Feb2004 History of Ear surgery Left Past Medical History Problems History of diabetes mellitus (V12.29) (Z86.39) History of high blood pressure (V12.59) (Z86.79) History of high cholesterol (V12.29) (Z86.39) History of kidney disease (V13.09) (Z87.448) History of skin cancer (V10.83) (Z85.828) History of snoring (V15.89) (Z87.898) Current Meds Medication NameInstruction amLODIPine Besylate 5 MG Oral TabletTAKE 1 TABLET DAILY. Aspirin EC 81 MG Oral Tablet Delayed Release1 tablet on and fridays Finasteride 5 MG Oral TabletTake 1 tablet twice daily glyBURIDE 5 MG Oral TabletTAKE 1 TABLET TWICE DAILY, WITH MORNING AND EVENING MEAL Metoprolol Succinate ER 25 MG Oral Tablet Extended Release 24 HourTake 1 tab (more content not included)... Normal [facility] Tobacco Screening.on 022 Fall risk assessment a) No falls within the last year [facility] 600 DO Work Phone: Tobacco use status [facility] b) No [facility] 600 DO Work Phone: Progress Note-Nurseon 2018 Protein mass conc Patient: MCKAYLA LOZANO Age: 72 years Sex: Male : 1945 Associated Diagnoses: None Author: Bi LAGUERRE, Camille Godfrey Impression and Plan [facility] [place] for warfarin 2.5mg tablets for a 30 day supply with 3 refills. Normal [facility] Vital Signs Date Time Vital Sign Value Performing Clinician Facility 05-06-2023 10:19-0400 Body height 157.48 cm DO Elda Cee III Work Phone: [facility] 05-06-2023 10:19-0400 Body mass index (BMI) [Ratio] 36.6 kg/m2 DO Elda Cee III Work Phone: [facility] 05-06-2023 10:19-0400 Body temperature 97.8 [degF] DO Elda Cee III Work Phone: [facility] 05-06-2023 10:19-0400 Body weight 90.71 kg DO Elda Cee III Work Phone: [facility] 05-06-2023 10:19-0400 Diastolic blood pressure 62 mm[Hg] DO Elda Cee III Work Phone: [facility] 05-06-2023 10:19-0400 Heart rate 88 /min DO Elda Cee III Work Phone: [facility] 05-06-2023 10:19-0400 Respiratory rate 16 /min DO Elda Cee III Work Phone: [facility] 05-06-2023 10:19-0400 SaO2% (BldA) [Mass fraction] 98 % DO Elda Cee III Work Phone: [facility] 05-06-2023 10:19-0400 Systolic blood pressure 102 mm[Hg] DO Elda Cee III Work Phone: [facility] 04-15-2023 09:55-0500 Body height 157.48 cm DO Elda Cee III Work Phone: [facility] 04-15-2023 09:55-0500 Body mass index (BMI) [Ratio] 36.6 kg/m2 DO Elda Cee III Work Phone: [facility] 04-15-2023 09:55-0500 Body temperature 97.8 [degF] DO Elda Cee III Work Phone: [facility] 04-15-2023 09:55-0500 Body weight 90.71 kg DO Elda Cee III Work Phone: [facility] 04-15-2023 09:55-0500 Diastolic blood pressure 74 mm[Hg] DO Elda Cee III Work Phone: [facility] 04-15-2023 09:55-0500 Heart rate 67 /min DO Elda Cee III Work Phone: [facility] 04-15-2023 09:55-0500 Respiratory rate 16 /min DO Elda Cee III Work Phone: [facility] 04-15-2023 09:55-0500 SaO2% (BldA) [Mass fraction] 98 % DO Elda Cee III Work Phone: [facility] 04-15-2023 09:55-0500 Systolic blood pressure 116 mm[Hg] DO Elda Cee III Work Phone: [facility] 03-29-2023 14:56-0500 Body height 157.5 cm Boris Martinez DPM FACFAS Work Phone: [facility] 03-29-2023 14:56-0500 Body mass index (BMI) [Ratio] 36.95 kg/m2 Boris Martinez DPM FACFAS Work Phone: [facility] 03-29-2023 14:56-0500 Body weight 91.63 kg Boris Martinez DPM FACFAS Work Phone: [facility] 03-29-2023 14:56-0500 Diastolic blood pressure 77 mm[Hg] Boris Martinez DPM FACFAS Work Phone: [facility] 03-29-2023 14:56-0500 Heart rate 74 /min Boris Martinez DPM FACFAS Work Phone: [facility] 03-29-2023 14:56-0500 Systolic blood pressure 132 mm[Hg] Boris Martinez SHANON RIVAS Work Phone: [facility] 03-24-2023 11:42-0500 Body height 160 cm Leola Stark MD Work Phone: [facility] 03-24-2023 11:42-0500 Body mass index (BMI) [Ratio] 35.78 kg/m2 Leola Stark MD Work Phone: [facility] 03-24-2023 11:42-0500 Body weight 91.63 kg Leola Stark MD Work Phone: [facility] 03-24-2023 11:42-0500 Diastolic blood pressure 58 mm[Hg] Leola Stark MD Work Phone: [facility] 03-24-2023 11:42-0500 Heart rate 56 /min Leola Stark MD Work Phone: [facility] 03-24-2023 11:42-0500 Systolic blood pressure 120 mm[Hg] Leola Stark MD Work Phone: [facility] 12-01-2022 14:58-0400 Blood Pressure Location LORA HERNANDEZ [facility] 12-01-2022 14:58-0400 Diastolic blood pressure 76 mm[Hg] LORA HERNANDEZ [facility] 12-01-2022 14:58-0400 Heart rate 68 /min LORA HERNANDEZ [facility] 12-01-2022 14:58-0400 Respiratory rate 16 /min LORA HERNANDEZ [facility] 12-01-2022 14:58-0400 Systolic blood pressure 130 mm[Hg] LORA HERNANDEZ [facility] 12-03-2021 09:39-0400 Body height 157.48 cm Referring Provider Unknown [facility] 600 DO Work Phone: 12-03-2021 09:39-0400 Body mass index (BMI) [Ratio] 36.95 kg/m2 Referring Provider Unknown [facility] 600 DO Work Phone: 12-03-2021 09:39-0400 Body surface area Derived from formula 1.92 m2 Referring Provider Unknown [facility] 600 DO Work Phone: 12-03-2021 09:39-0400 Body weight 91.63 kg Referring Provider Unknown [facility] 600 DO Work Phone: 12-03-2021 09:39-0400 Diastolic blood pressure 64 mm[Hg] Referring Provider Unknown [facility] 600 DO Work Phone: 12-03-2021 09:39-0400 Heart rate 62 /min Referring Provider Unknown [facility] 600 DO Work Phone: 12-03-2021 09:39-0400 Systolic blood pressure 122 mm[Hg] Referring Provider Unknown [facility] 600 DO Work Phone: 11-26-2021 14:11-0400 Blood Pressure Location LORA HERNANDEZ [facility] 11-26-2021 14:11-0400 Diastolic blood pressure 75 mm[Hg] LORA MARY [facility] 11-26-2021 14:11-0400 Heart rate 84 /min LORAAYLA LARARY [facility] 11-26-2021 14:11-0400 Respiratory rate 16 /min LORA HERNANDEZ [facility] 11-26-2021 14:11-0400 Systolic blood pressure 121 mm[Hg] LORA HERNANDEZ [facility] 11-17-2021 21:46-0400 Body temperature 97.34 [degF] [facility] 11-17-2021 21:46-0400 Diastolic blood pressure 91 mm[Hg] [facility] 11-17-2021 21:46-0400 Heart rate 84 /min [facility] 11-17-2021 21:46-0400 Respiratory rate 18 /min [facility] 11-17-2021 21:46-0400 SaO2% (BldA) [Mass fraction] 95 % [facility] 11-17-2021 21:46-0400 Systolic blood pressure 170 mm[Hg] [facility] 02-27-2021 10:45-0500 Body height 157.48 cm Referring Provider Unknown [facility] 600 DO Work Phone: 02-27-2021 10:45-0500 Body mass index (BMI) [Ratio] 38.23 kg/m2 Referring Provider Unknown [facility] 600 DO Work Phone: 02-27-2021 10:45-0500 Body surface area Derived from formula 1.95 m2 Referring Provider Unknown [facility] 600 DO Work Phone: 02-27-2021 10:45-0500 Body weight 94.8 kg Referring Provider Unknown [facility] 600 DO Work Phone: 02-27-2021 10:45-0500 Diastolic blood pressure 76 mm[Hg] Referring Provider Unknown [facility] 600 DO Work Phone: 02-27-2021 10:45-0500 Heart rate 81 /min Referring Provider Unknown [facility] 600 DO Work Phone: 02-27-2021 10:45-0500 Systolic blood pressure 102 mm[Hg] Referring Provider Unknown [facility] 600 DO Work Phone: Encounters Encounter Date Encounter Type Care Provider Facility Start: 10-01-2023 End: 10-01-2023 ambulatory Vito Knutsona Facility:[facility] Start: 10-01-2023 End: 10-01-2023 Patient encounter procedure Vito Knutsona [facility] Start: 08-04-2023 End: 08-04-2023 ambulatory BORIS D DOLCE Not Available Start: 07-13-2023 End: 07-13-2023 ambulatory POLLO SHARMA Not Available Start: 05-26-2023 End: 05-26-2023 ambulatory BORIS D DOLCE Not Available Start: 05-06-2023 End: 05-06-2023 ambulatory DO Elda R Cee III Work Phone: [facility] Work Phone: Start: 05-06-2023 End: 05-06-2023 Patient encounter procedure DO Elda Cee III Work Phone: [facility] V[facility] Surgery Work Phone: Start: 05-03-2023 End: 05-03-2023 ambulatory BECKY Irvin DUPONT Not Available Start: 04-28-2023 End: 04-28-2023 ambulatory Adrian Lares Facility:[facility] Start: 04-28-2023 End: 04-28-2023 ambulatory DO Elda R Cee III Work Phone: [facility] Work Phone: Start: 04-28-2023 End: 04-28-2023 Patient encounter procedure DO Elda Cee III Work Phone: [facility] [place] Work Phone: Start: 04-15-2023 End: 04-15-2023 Patient encounter procedure DO Elda Cee III Work Phone: [facility] Vascular Surgery Work Phone: Start: 03-29-2023 End: 03-29-2023 Office outpatient visit 15 minutes Boris Martinez DPM FACFAS Work Phone: [facility] Comment on above: Type 2 diabetes shweta itus with diabetic neuropathy, without long-term current use of insulin (CMS/HCC) (Primary Dx); Venous insufficiency (chronic) (peripheral); Chronic 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 (CMS/HCC) Start: 03-29-2023 End: 03-29-2023 ambulatory BORIS MARTINEZ Not Available Start: 03-29-2023 Bamboo flowsheet Boris Martinez DPM FACFAS Work Phone: [facility] Start: 03-29-2023 Bamboo flowsheet Boris Martinez DPM FACFAS Work Phone: [facility] Start: 03-24-2023 End: 03-24-2023 ambulatory [facility] Ambulatory Start: 03-24-2023 End: 03-24-2023 Office outpatient visit 15 minutes Leola Stark MD Work Phone: [facility] Comment on above: Paroxysmal atrial fi brillation (CMS/HCC) (Primary Dx); Permanent atrial fibrillation (CMS/HCC); Mixed hyperlipidemia; Primary hypertension; Single vessel coronary disease; Shortness of breath; BMI 35.0-35.9,adult Start: 03-17-2023 End: 03-17-2023 ambulatory BORIS MARTINEZ Not Available Start: 03-02-2023 End: 03-03-2023 ambulatory Boris Martinez Facility:[facility] Start: 03-02-2023 End: 03-02-2023 Patient encounter procedure Boris Martinez [facility] Start: 02-23-2023 End: 02-24-2023 ambulatory Boris Martinez Facility:[facility] Start: 02-23-2023 End: 02-23-2023 Patient encounter procedure Brois Martinez [facility] Start: 02-19-2023 ambulatory Constance Edita Facility: [facility] Start: 02-17-2023 End: 02-17-2023 ambulatory BORIS MARTINEZ Not Available Start: 02-01-2023 End: 02-01-2023 ambulatory BECKY A PETITTI Not Available Start: 12-31-2022 End: 12-31-2022 ambulatory BECKY A PETITTI Not Available Start: 12-01-2022 End: 12-02-2022 ambulatory LORA HERNANDEZ Facility:[facility] Start: 12-01-2022 End: 12-01-2022 Patient encounter procedure LORA HERNANDEZ [facility] Start: 06-16-2022 End: 06-17-[address] DOCTOR HDEZ Facility:[facility] Start: 04-29-2022 End: 04-30-[address] POLLO SHARMA Facility:[facility] Start: 03-26-2022 End: 03-26-2022 Patient encounter procedure Austin Aquino [facility] Start: 02-26-2022 End: 02-26-2022 Patient encounter procedure Austin Aquino [facility] Start: 02-17-2022 End: 04-22-2023 Recurring Constance Edita [facility] Start: 02-13-2022 End: 02-13-2022 ambulatory [employer]ICE [employer] Kristi Ramos Work Phone: [facility] Work Phone: Start: 02-13-2022 End: 02-13-2022 Departed Referred [employer] VICE PRESIDENT Kristi Ramos Work Phone: [facility] [place] Work Phone: Start: 02-12-2022 End: 02-12-2022 Patient encounter procedure Austin Aquino [facility] Start: 01-14-2022 End: 01-14-2022 Departed Referred [employer] VICE PRESIDENT Kristi Ramos Work Phone: [facility] [place] Work Phone: Start: 12-25-2021 End: 12-25-2021 ambulatory [employer] VICE PRESIDENT Kristi Ramos Work Phone: [facility] Work Phone: Start: 12-25-2021 End: 12-25-2021 Departed Referred FIN[employer]CIAL INSTITUTION VICE PRESIDENT Kristi Ramos Work Phone: [facility] Start: 12-03-2021 Office outpatient vi sit 25 minutes Referring Provider Unknown [facility] 600 DO Work Phone: Start: 12-03-2021 ambulatory PCP UNKNOWN Facility:1 [id number] Start: 11-26-2021 End: 11-26-2021 Patient encounter procedure LORA HERNANDEZ [facility] Start: 11-17-2021 End: 11-17-2021 Emergency department patient visit Bianca Eppstania [facility] Start: 10-30-2021 Rx Renewal Referring Prov ider Unknown [facility] [place] 250 DO Work Phone: Start: 02-27-2021 Office outpatient vi sit 25 minutes Referring Provider [facility] DO Work Phone: Start: 02-27-[address] Leola Stark Facility: Start: 02-25-2021 End: 05-27-2021 Recurring Constance Pedrofabiola [facility] Patient encounter status Referri ng Provider Unknown -[facility] 600 DO Work Phone: Procedures Date Procedure Procedure Detail Performing Clinician Start: 04-28-2023 Duplex scan of lower limb veins DO [facility] III Work Phone: Start: 04-28-2023 Pulse volume recorde r pneumoplethysmography DO [facility] III Work Phone: Start: 03-24-2023 ECG 12-LEAD LEOLA [place] Start: 03-24-2023 Ecg routine ecg w/le ast 12 lds w/i&r Leola Stark MD Work Phone: Start: 01-14-2022 Aerobic microbial culture [employer]IDENT Kristi Ramos Work Phone: Start: 12-25-2021 Aerobic microbial culture [employer]ICE [employer]IDENT Kristi Ramos Work Phone: Start: 10-27-2017 LEFT EXPLORATORY TYM PANOTOMY, REPAIR OF PERILYMPHATIC FISTULA 1 Constance Kohler Comment on above: LEFT EXPLORATORY TYM PANOTOMY, REPAIR OF PERILYMPHATIC FISTULA Start: 02-15-1952 Rheumatic fever (disorder) Constance Pedrofabiola Appendectomy Referring Provi david Unknown Appendectomy Constance Kohler Cardioversion Referring Prov ider Unknown Colonoscopy Referring Provi david Unknown Comment on above: 16Feb2004; Colonoscopy Constance Kohler Extraction of cataract Daysi Kohler Operation on the ear Referri ng Provider Unknown Comment on above: Left; Stent, device (physical object) Constance Pedrofabiola Plan of Treatment Date Care Activity Detail Author Start: 12-24-2031 DTaP/Tdap/Td Vaccine s (2 - Td or Tdap) DTaP/Tdap/Td Vaccines (2 - Td or Tdap) [facility] Start: 12-01-2023 End: 12-01-2023 Patient encounter procedure 12/01/2023 11:20 AM EDT Office Visit [facility] [address] [facility] [address] [place] [phone] Leola Stark MD [address] [facility] [address] [place] [address] [facility] Start: 05-26-2023 End: 05-26-2023 Patient encounter procedure 05/26/2023 3:50 PM EDT Office Visit [facility] [address] [facility] [place] [phone] Boris Martinez, DPM FACFAS [address] [place] [address] [facility] Start: 05-03-2023 End: 05-03-2023 Patient encounter procedure 05/03/2023 3:35 PM EDT Office Visit [facility] [address] [facility] [address] [place] [address] Becky Dupont MD [address] [facility] [address] [place] [address] [facility] Start: 03-29-2023 End: 03-29-2023 Patient encounter procedure 03/29/2023 3:00 PM EST Office Visit [facility] [address] [place] [phone] Boris Martinez, DPM FACFAS [address] [place] [address] Arrived [facility] Comment on above: Arrived Start: 09-08-2022 FUV, Provider: Leola Stark, Status: Pen, Time: 11:10 AM FUV, Provider: Leola Stark, Status: Pen, Time: 11:10 AM [facility] 600 DO Work Phone: Start: 02-13-2022 Superficial Wound Culture Supe rficial Wound Culture [facility] Start: 12-03-2021 FUV, Provider: Leola Stark, Status: Pen, Time: 9:50 AM FUV, Provider: Leola Stark, Status: Pen, Time: 9:50 AM [facility] 600 DO Work Phone: Start: 1963 Diabetes mellitus screening Diabetes Screening [facility] Start: 1962 Hepatitis C screening Hepatitis C Sc reening [facility] Start: 1945 Creatinine measurement Creatinine [place] [facility] Start: 1945 Echocardiography [facility] Start: 1945 Lipid panel Lipid Panel [facility] Start: 1945 Medicare Annual Well ness Visit Medicare Annual Wellness Visit (AWV) [facility] Start: 1945 Potassium measurement Potassium Leve l [facility] Superficial Wound Culture Superf icial Wound Culture [facility] Immunizations Immunization Date Immunization Notes Care Provider Ángela mercado 10-25-2022 zoster vaccine recombinant LORA MARY [facility] 08-23-2022 zoster vaccine recombinant LORA MARY [facility] 12-23-2021 tetanus toxoid, redu maribel diphtheria toxoid, and acellular pertussis vaccine, adsorbed LORA MARY [facility] 11-25-2021 Fluzone High-Dose Quadrivalent 0.7 ML Intramuscular Suspension Prefilled Syringe Referring Provider Unknown [facility] 600 DO Work Phone: 11-25-2021 influenza virus vacc ine, unspecified formulation LORA HERNANDEZ [facility] 01-08-2021 Pfizer-BioNTech COVI D-19 Vacc 30 MCG/0.3ML Intramuscular Suspension Referring Provider Unknown [facility] 12-07-2020 Fluzone High-Dose Quadrivalent 0.7 ML Intramuscular Suspension Prefilled Syringe Referring Provider Unknown [facility] 600 DO Work Phone: 12-07-2020 influenza virus vacc ine, unspecified formulation LORA HERNANDEZ [facility] 04-03-2020 Pfizer-BioNTech COVI D-19 Vacc 30 MCG/0.3ML Intramuscular Suspension Referring Provider Unknown [facility] 600 DO Work Phone: 03-15-2020 Pfizer-BioNTech COVI D-19 Vacc 30 MCG/0.3ML Intramuscular Suspension Referring Provider Unknown [facility] 600 DO Work Phone: 11-16-2019 influenza virus vacc ine, unspecified formulation Referring Provider Unknown [facility] 02-28-2019 pneumococcal conjuga te vaccine, 13 valent Referring Provider Unknown [facility] 11-15-2018 influenza virus vacc ine, unspecified formulation Referring Provider Unknown [facility] 11-15-2018 influenza, high dose seasonal, preservative-free Referring Provider Unknown [facility] 600 DO Work Phone: 11-15-2017 influenza virus vacc ine, unspecified formulation Referring Provider Unknown [facility] 600 DO Work Phone: 11-15-2017 pneumococcal polysaccharide vaccine, 23 valent Referring Provider Unknown [facility] 600 DO Work Phone: 11-15-2016 influenza, high dose seasonal, preservative-free Referring Provider Unknown [facility] 600 DO Work Phone: 11-16-2015 influenza virus vacc ine, unspecified formulation Referring Provider Unknown [facility] 600 DO Work Phone: 11-09-2014 influenza virus vacc ine, unspecified formulation Referring Provider Unknown [facility] 600 DO Work Phone: 03-08-2013 influenza virus vacc ine, unspecified formulation LORA HERNANDEZ [facility] Maureen 03-08-2013 influenza, seasonal, injectable Referring Provider Unknown [facility] 600 DO Work Phone: 02-16-2012 influenza virus vacc ine, unspecified formulation Referring Provider Unknown [place] [address] DO Work Phone: 01-06-2010 tetanus and diphther ia toxoids, adsorbed, preservative free, for adult use (2 Lf of tetanus toxoid and 2 Lf of diphtheria toxoid) Constancetrina Kohler [facility] 02-15-2009 pneumococcal polysaccharide vaccine, 23 valent Referring Provider Unknown [place] [address] DO Work Phone: 01-30-2009 novel influenza-H1N1 -09, preservative-free, injectable Referring Provider Unknown [place] [address] DO Work Phone: influenza virus vacc ine, unspecified formulation Referring Provider Unknown [place] [address] DO Work Phone: Comment on above: 2009 Payers Date Payer Category Payer Self-pay [id number] 2023 Medicare [id number] 2021 Medicare [id number] 1959 Unknown [id number] 1945 Unknown [id number] 2.16. [id number] 1945 Unknown [id number] 2.16. 840.1.448608.3.579.2.356 1945 Unknown [id number] 2.16.84 0.1.819561.3.579.2.593 1945 Unknown [id number] 2.16.84 0.1.834604.3.579.2.593 1944 Unknown [id number] 2.16.8 40.1.874245.3.579.2.1244 1944 Unknown [id number] 2.16.8 40.1.742962.3.579.2.727 1944 Unknown [id number] 2.16.8 40.1.533755.3.579.2.727 1944 Unknown [id number] 2.16.8 40.1.696624.3.579.2.727 1944 Unknown [id number] 2.16.8 40.1.987638.3.579.2.727 1944 Unknown [id number] 2.16.84 0.1.632970.3.579.2.1259 1944 Unknown [id number] 2.16.84 0.1.171071.3.579.2.1259 1944 Unknown [id number] 2.16.84 0.1.949841.3.579.2.1259 1944 Unknown [id number] 2.16.84 0.1.365505.3.579.2.1259 1944 Unknown [id number] 2.16.84 0.1.284741.3.579.2.1259 1944 Unknown [id number] 2.16.84 0.1.810496.3.579.2.1259 1944 Unknown [id number] 2.16.840 .1.065960.3.579.2.1259 1944 Unknown [id number] 2.16.840 .1.846108.3.579.2.1259 1944 Unknown [id number] 2.16.840 .1.493553.3.579.2.1259 1945 Unknown [id number] 2.16.8 40.1.759972.3.579.2.727 Unknown Unknown [id number] 2.16.8 40.1.462557.3.579.2.531 Social History Date Type Detail Facility Start: 03-24-2023 End: 03-29-2023 Occasional caffeine consumption Occasional caffeine consumption -[facility] 600 DO Work Phone: Start: 12-04-2019 End: 04-21-2023 Tobacco smoking status Never smoked tobacco (finding) [facility] Start: 03-24-2023 End: 03-29-2023 Sex Assigned At Male [facility] Start: 11-26-2021 End: 12-01-2022 Tobacco smoking status Ex-smoker (finding) [facility] Comment on above: Pt denies use, has b een smoke free for several years Start: 1945 Sex Assigned At Male F [facility] Tobacco smoking status Never [facility] Comment on above: Pt denies use, has b een smoke free for several years Start: 08-03-2022 End: 03-24-2023 Tobacco use and exposure Smokeless tobacco non-user [facility] Work Phone: Start: 03-24-2023 Alcohol intake Lifetime non-d margie (finding) [facility] Work Phone: Start: 1945 Sex Assigned At Not on file U [facility] Work Phone: Start: 03-14-2023 End: 03-24-2023 Exposure to SARS-CoV-2 (event) Not sure [facility] Start: 03-17-2023 End: 03-29-2023 Alcohol intake Ex-drinker (finding) [facility] Start: 09-09-2022 Alcohol Comment Hasn't drank a lcohol in the past 12 months. / Caffeine: 1-2 cups/day [facility] Functional Status Date Assessment Result Facility 12-01-2022 Functional Status N/A [facility] 11-26-2021 Functional Status N/A [facility] 11-17-2021 Functional Status N/A [facility] Clinical Notes 02-25-2021 to 06-01-2023 Boris Martinez DPM FACFAS - 03/29/2023 3:00 PM Sarah Stark MD - 03/24/2023 11:20 AM ESTPatient Instructions Note Date & Type Note Facility 06-01-2023 Note Patient: Pasquale LOZANO Age: 77 years Sex: Male : 1945 Associated Diagnoses: None Author: Constance Alvarado Patient is seen today for their interval coumadin assessment in [facility] He is on Coumadin for Afib. He has a pmhx of Atrial fibrillation, Basal cell carcinoma, Benign essential hypertension, Hyperlipidemia, and Renal insufficiency. Pt is followed by Dr. Stark. He is tolerating Coumadin well. Denies any melena, hematochezia, hematuria, gingival bleeding, hematoma's or prolonged epistaxis. We discussed the patient's coumadin therapy today. --Indication: afib --Current coumadin pill being used: as above --Current dose of coumadin: as above --Side effects / complications of coumadin: Denies any problems with the use of coumadin -- denies any gum bleeds, nose bleeds, easy bruising, or other sequelae of coumadin toxicity. --Medication changes since last visit: none --OTC meds / herbal meds used since the last visit: none --Any change in diet since last visits, including vitamin-K rich foods: none --Compliance: no missed doses We also reviewed the patient's risk factors for bleeding using the Outpatient Bleeding Risk Index: 1. 65yo or older: yes 2. Hx of GI tract bleeding: no 3. Hx of stroke: no 4. Serious co-morbid conditions (recent MO, anemia with Hct <30%, CRI with SCr > 1.5, DM): yes Score = 2/4 Risk (low = 0, mod = 1-2, high = 3-4): Health Status Allergies: Allergic Reactions (Selected) No Known Allergies, Allergies (1) Active Severity Reaction No Known Allergies None Documented Current medications: (Selected) Prescriptions Prescribed Coumadin 2.5 mg Tab: See Instructions, take 2.5 mg on wed and wednesday, # 90 tab(s), Refills(s) 2, Pharmacy: [facility], 157, cm, 11/04/20 12:43:00 EDT, Height/Length Dosing, 96.2, kg, 11/04/20 12:43:00 EDT, Weight Dosing Coumadin 5 mg Tab: See Instructions, take 5 mg on [id number]. Take 2.5 mg all other days, # 90 tab(s), Refills(s) 1, Pharmacy: [facility], 157, cm, 11/26/21 14:13:00 EDT, Height/Length Dosing, 94.6, kg, 11/26/21 14:13:00 EDT, Weight Dosing Flomax 0.4 mg Cap: 0.4 mg = 1 cap(s), Oral, BID, # 180 cap(s), Refills(s) 3, Pharmacy: [facility], 157, cm, 12/01/22 15:00:00 EDT, Height/Length Dosing, 94.6, kg, 12/01/22 15:00:00 EDT, Weight Dosing INSULIN SUPPLIES: INSULIN SUPPLIES, See Instructions, 1 EA, 0, 1. KWIK PEN NEEDLES QID # 120, [facility], Supply, 158, cm, 11/08/19 9:19:00 EDT, Height/Length Dosing, 93.9, kg, 11/08/19 9:19:00 EDT, Weight Dosing finasteride 5 mg Tab: 5 mg = 1 tab(s), Oral, Daily, # 90 tab(s), Refills(s) 3, Pharmacy: [facility], 157, cm, 12/01/22 15:00:00 EDT, Height/Length Dosing, 94.6, kg, 12/01/22 15:00:00 EDT, Weight Dosing Documented Medications Documented Crestor: 20 mg, Oral, Once a day (at bedtime), Refills(s) 0 Lantus: SubCutaneous, Daily, Refills(s) 0 Metoprolol tartrate 25 mg Tab: 25 mg = 1 tab(s), Oral, BID, Irregular heartbeat Trulicity Pen 0.75 mg/0.5 mL subcutaneous solution: SubCutaneous, qWeek, Refills(s) 0 amLODIPine 5 mg Tab: 5 mg = 1 tab(s), Oral, Daily, Refills(s) 0 aspirin 81 mg Oral EC Tab: 81 mg = 1 tab(s), Oral, TueFri, Refills(s) 0, Blood Thinner donepezil 10 mg Tab: Refills(s) 0 furosemide 40 mg Tab: mg tab(s), Oral, Daily, Refills(s) 0 glyBURIDE 5 mg Tab: 5 mg = 1 tab(s), Oral, Daily, Refills(s) 0 spironolactone 25 mg Tab: Refills(s) 0, Home Medications (15) Active amLODIPine 5 mg Tab 5 mg = 1 tab(s), Oral, Daily aspirin 81 mg Oral EC Tab 81 mg = 1 tab(s), Oral, TueFri Coumadin 2.5 mg Tab See Instructions Coumadin 5 mg Tab See Instructions Crestor 20 mg, Oral, Once a day (at bedtime) donepezil 10 mg Tab finasteride 5 mg Tab 5 mg = 1 tab(s), Oral, Daily Flomax 0.4 mg Cap 0.4 mg = 1 cap(s), Oral, BID furosemide 40 mg Tab , Oral, Daily glyBURIDE 5 mg Tab 5 mg = 1 tab(s), Oral, Daily INSULIN SUPPLIES See Instructions Lantus , SubCutaneous, Daily Metoprolol tartrate 25 mg Tab 25 mg = 1 tab(s), Oral, BID spironolactone 25 mg Tab Trulicity Pen 0.75 mg/0.5 mL subcutaneous solution , SubCutaneous, qWeek , No qualifying data available Problem list: All Problems Balanitis / SNOMED CT 15986773 / Confirmed BPH with urinary obstruction / SNOMED CT 9473582280 / Confirmed CVA (cerebrovascular accident) / SNOMED CT 230470501 / Confirmed CAD (coronary artery disease) / SNOMED CT 82013802 / Confirmed Diabetes / SNOMED CT 238467209 / Confirmed Dysuria / SNOMED CT 75837741 / Confirmed Hyperlipidemia / SNOMED CT 85485057 / Confirmed Hypertension / SNOMED CT 3454656828 / Confirmed MHL (mixed hearing loss) / SNOMED CT 644239216 / Confirmed left Weak urine stream / SNOMED CT 169258232 / Confirmed Prostatitis / SNOMED CT 79472894 / Confirmed Protein in urine / SNOMED CT 34980689 / Confirmed Urinary retention / SNOMED (more content not included)... [facility] Comment on above: Result Comment: Elec tronically Signed By: Constance Alvarado\.br\Date and Time Signed: 06/01/23 15:29 EDT 03-29-2023 History of Present illness Narrative Images from the original note were not included. Patient: Mckayla Lozano : 1945 PCP: DO DANA RILEY This is a 77 y.o. male that presents today for a chief complaint of follow-up of a venous ulceration right leg area is well healed. He does have appointment with the [facility] [place] at the end of the month. He has been applying mild compression. 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, Mohs SCC (squamous cell carcinoma) 11/27/2021 in situ, parietal scalp, Mohs SCC (squamous cell carcinoma) 12/11/2021 in situ, right helix, Mohs SCC (squamous cell carcinoma) 12/25/2021 frontal scalp, Mohs Medications: Current Outpatient Medications: amLODIPine (Norvasc) 5 MG tablet, Take by mouth Daily., Disp: , Rfl: aspirin 81 MG EC tablet, Take 81 mg by mouth in the morning., Disp: , Rfl: betamethasone dipropionate (Diprolene) 0.05 % ointment, Apply to scalp BID, Disp: 45 g, Rfl: 3 betamethasone dipropionate 0.05 % cream, Apply to affected areas, up to twice a day when flared, do not use one the face, groin, or underarms, 30 day supply, Disp: 45 g, Rfl: 11 cephalexin (Keflex) 500 MG capsule, Take 1 capsule, by mouth, bid x 7 days (Patient not taking: Reported on 12/31/2022), Disp: 14 capsule, Rfl: 0 donepezil (Aricept) 10 MG tablet, Take 10 mg by mouth at bedtime., Disp: , Rfl: dulaglutide (Trulicity) 1.5 MG/0.5ML solution pen-injector, Inject 1.5 mg under the skin 1 (one) time per week., Disp: , Rfl: finasteride (Proscar) 5 MG tablet, Take 5 mg by mouth in the morning. Do not crush, chew, or split. ., Disp: , Rfl: furosemide (Lasix) 40 MG tablet, Take by mouth., Disp: , Rfl: glyBURIDE (Diabeta) 5 MG tablet, Take 5 mg by mouth in the morning and 5 mg in the evening. Take with meals., Disp: , Rfl: insulin glargine (Lantus) 100 UNIT/ML injection, Inject under the skin at bedtime., Disp: , Rfl: metoprolol tartrate (Lopressor) 25 MG tablet, Take by mouth 2 (two) times a day., Disp: , Rfl: rosuvastatin (Crestor) 20 MG tablet, Take 40 mg by mouth in the morning., Disp: , Rfl: spironolactone (Aldactone) 25 MG tablet, Take by mouth Daily., Disp: , Rfl: tamsulosin (Flomax) 0.4 MG 24 hr capsule, Take 0.4 mg by mouth in the morning., Disp: , Rfl: warfarin (Coumadin) 2.5 MG tablet, Take by mouth. Take as directed per After Visit Summary., Disp: , Rfl: ROS: Constitutional: Denies fever, chills, nausea, vomiting GI: Denies abdominal pain, cramping, loose stool, gastric ulcers Musculoskeletal: Denies low back pain, knee pain, systemic arthritis Neurologic: Denies burning, tingling, transient paralysis OBJECTIVE Physical examination: Vascular: Dorsalis pedis posterior tibial pulses are palpable bilateral, no edema noted Neuro: [place]-Jacek 5.07 monofilament intact, vibratory sensation intact Derm: All hair growth noted skin temperature is warm to cool knees to toes no signs of infection no ulcerations noted areas are well healed still has significant venous disease Musculoskeletal: Muscle strength +5/5 all intrinsic and extrinsic muscles tested XRAY: US: ASSESSMENT 1. Type 2 diabetes mellitus with diabetic neuropathy, without long-term current use of insulin ([facility]) 2. Venous insufficiency (chronic) (peripheral) 3. Chronic 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 ([facility]) PLAN Patient is doing very well his venous ulcerations are healed he does have significant venous disease he was referred to the [facility] we will follow up with me for regular diabetic foot care. I will receive reports from the [facility] regarding his venous disease. SHANON Cervantes documented in this encounter [facility] 03-24-2023 History of Present illness Narrative Subjective Mckayla Lozano is a 77 y.o. male Chief Complaint Follow-up HPI Patient is here for follow-up continue management for persistent atrial fibrillation. He appears to be in and out of atrial fibrillation he was in the past on amiodarone but continued to have in and out of atrial fibrillation. We elected to focus on heart rate control considering he is minimally symptomatic. Today he is in sinus rhythm. He denies complaint of chest pain, palpitation, lightheadedness, dizziness or syncope. His report that he is developing significant dementia and very poor short-term memory. Cardiac simmons has been stable. ASSESSMENT: 1. Persistent atrial fibrillation Failed long-term amiodarone therapy. I thought he could have become permanent however his clinical course suggest more paroxysmal A-fib which is minimally symptomatic 2. Long-term anticoagulation with Coumadin. Tolerating that well without any side effect 3. Probable sleep apnea. Patient declined evaluation 4. coronary artery disease with remote percutaneous coronary left circumflex and marginal 5. Hypertension controlled 6. Obesity with no significant weight changes 7. Minor shortness of breath unchanged from before 8. Hyperlipidemia on rosuvastatin. LDL is 51 triglyceride mildly elevated 9. 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 Patient developing dementia RECOMMENDATIONS: 1. We discussed treatment option at great length.. Patient elected for long-term anticoagulation. No antiarrhythmic. Considering his A-fib is minimally symptomatic we will continue with current therapy 3. I encouraged the patient to restrict his salt intake 4. I discussed again with him switching to one of the newer agent like Eliquis or Xarelto patient stated he is comfortable with Coumadin and would like to stay on the 5. I reviewed his previous lab with him 6. We discussed sleep evaluation but the patient want to defer for now 7. We will see him in 8 months Review of Systems All other systems reviewed and are negative. Visit Vitals BP 120/58 (BP Location: Right arm, Patient Position: Sitting) Pulse 56 Ht 1.6 m (5' 3 ) Wt 91.6 kg (202 lb) BMI 35.78 kg/m Smoking Status Never BSA 2.02 m Objective Physical Exam Constitutional: Appearance: Normal appearance. He is normal weight. HENT: Nose: Nose normal. Neck: Vascular: No carotid bruit. Cardiovascular: Rate and Rhythm: Normal rate. Pulses: Normal pulses. Heart sounds: Normal heart sounds. Pulmonary: Effort: Pulmonary effort is normal. Abdominal: General: Bowel sounds are normal. Palpations: Abdomen is soft. Genitourinary: Rectum: Normal. Musculoskeletal: General: Normal range of motion. Cervical back: Normal range of motion. Right lower leg: No edema. Left lower leg: No edema. Skin: General: Skin is warm and dry. Neurological: General: No focal deficit present. Mental Status: He is alert. Psychiatric: Mood and Affect: Mood normal. Behavior: Behavior normal. Thought Content: Thought content normal. Judgment: Judgment normal. Current Medications Current Outpatient Medications: amLODIPine (Norvasc) 5 mg tablet, Take 1 tablet (5 mg) by mouth once daily., Disp: , Rfl: aspirin 81 mg EC tablet, Take 1 tablet (81 mg) by mouth once daily., Disp: , Rfl: donepezil (Aricept ODT) 10 mg disintegrating tablet, Take 1 tablet (10 mg) by mouth 2 times a day., Disp: , Rfl: dulaglutide (Trulicity) 0.75 mg/0.5 mL pen injector, Inject 0.75 mg under the skin 1 (one) time per week., Disp: , Rfl: finasteride (Proscar) 5 mg tablet, Take 1 tablet (5 mg) by mouth 2 times a day., Disp: , Rfl: furosemide (Lasix) 40 mg tablet, Take 1 tablet (40 mg) by mouth once daily., Disp: , Rfl: glyBURIDE (Diabeta) 5 mg tablet, Take 1 tablet (5 mg) by mouth twice a day., Disp: , Rfl: insulin glargine (Lantus U-100 Insulin) 100 unit/mL injection, Inject 2 Units under the skin 2 times a day., Disp: , Rfl: metoprolol succinate XL (Toprol-XL) 25 mg 24 hr tablet, Take 1 tablet (25 mg) by mouth once daily. Do not crush or chew., Disp: , Rfl: rosuvastatin (Crestor) 40 mg tablet, Take 1 tablet (40 mg) by mouth once daily., Disp: , Rfl: spironolactone (Aldactone) 25 mg tablet, Take 1 tablet (25 mg) by mouth once daily., Disp: , Rfl: tamsulosin (Flomax) 0.4 mg 24 hr capsule, Take 1 capsule (0.4 mg) by mouth 2 times a day., Disp: , Rfl: warfarin (Coumadin) 2.5 mg tablet, Take 1 tablet (2.5 mg) by mouth once daily at bedtime., Disp: , Rfl: EKG done in office today Assessment/Plan 1. Paroxysmal atrial fibrillation (CMS/HCC) 2. Permanent atrial fibrillation (CMS/HCC) Follow Up In Cardiology ECG 12 Lead 3. Mixed hyperlipidemia 4. Primary hypertension Follow Up In Cardiology 5. Single vessel coronary disease 6. Shortness of breath 7. BMI 35.0-35.9,adult Scribe Attestation By signing my name below, alice Tran , Scribe attest that this documentation has been prepared under the direction and in the presence of Leola Stark MD. documented in this encounter [facility] Work Phone: 03-24-2023 Instructions Catalina Padron LPN - 03/24/2023 11:20 AM EST Please bring all medicines, vitamins, and herbal supplements with you when you come to the office. Prescriptions will not be filled unless you are compliant with your follow up appointments or have a follow up appointment scheduled as per instruction of your physician. Refills should be requested at the time of your visit. 8 months Same meds documented in this encounter [facility] Work Phone: 12-01-2022 Hospital Discharge instructions Patient Education 12/01/2022 15:27:00 Benign Prostatic Hyperplasia Benign Prostatic Hyperplasia Benign prostatic hyperplasia (BPH) is an enlarged prostate gland that is caused by the normal aging process. The prostate may get bigger as a man gets older. The condition is not caused by cancer. The prostate is a walnut-sized gland that is involved in the production of semen. It is located in front of the rectum and below the bladder. The bladder stores urine. The urethra carries stored urine out of the body. An enlarged prostate can press on the urethra. This can make it harder to pass urine. The buildup of urine in the bladder can cause infection. Back pressure and infection may progress to bladder damage and kidney (renal) failure. What are the causes? This condition is part of the normal aging process. However, not all men develop problems from this condition. If the prostate enlarges away from the urethra, urine flow will not be blocked. If it enlarges toward the urethra and compresses it, there will be problems passing urine. What increases the risk? This condition is more likely to develop in men older than 50 years. What are the signs or symptoms? Symptoms of this condition include: Getting up often during the night to urinate. Needing to urinate frequently during the day. Difficulty starting urine flow. Decrease in size and strength of your urine stream. Leaking (dribbling) after urinating. Inability to pass urine. This needs immediate treatment. Inability to completely empty your bladder. Pain when you pass urine. This is more common if there is also an infection. Urinary tract infection (UTI). How is this diagnosed? This condition is diagnosed based on your medical history, a physical exam, and your symptoms. Tests will also be done, such as: A post-void bladder scan. This measures any amount of urine that may remain in your bladder after you finish urinating. A digital rectal exam. In a rectal exam, your health care provider checks your prostate by putting a lubricated, gloved finger into your rectum to feel the back of your prostate gland. This exam detects the size of your gland and any abnormal lumps or growths. An exam of your urine (urinalysis). A prostate specific antigen (PSA) screening. This is a blood test used to screen for prostate cancer. An ultrasound. This test uses sound waves to electronically produce a picture of your prostate gland. Your health care provider may refer you to a specialist in kidney and prostate diseases (urologist). How is this treated? Once symptoms begin, your health care provider will monitor your condition (active surveillance or watchful waiting). Treatment for this condition will depend on the severity of your condition. Treatment may include: Observation and yearly exams. This may be the only treatment needed if your condition and symptoms are mild. Medicines to relieve your symptoms, including: ?Medicines to shrink the prostate. ?Medicines to relax the muscle of the prostate. Surgery in severe cases. Surgery may include: ?Prostatectomy. In this procedure, the prostate tissue is removed completely through an open incision or with a laparoscope or robotics. ?Transurethral resection of the prostate (TURP). In this procedure, a tool is inserted through the opening at the tip of the penis (urethra). It is used to cut away tissue of the inner core of the prostate. The pieces are removed through the same opening of the penis. This removes the blockage. ?Transurethral incision (TUIP). In this procedure, small cuts are made in the prostate. This lessens the prostate's pressure on the urethra. ?Transurethral microwave thermotherapy (TUMT). This procedure uses microwaves to create heat. The heat destroys and removes a small amount of prostate tissue. ?Transurethral needle ablation (TUNA). This procedure uses radio frequencies to destroy and remove a small amount of prostate tissue. ?Interstitial laser coagulation (ILC). This procedure uses a laser to destroy and remove a small amount of prostate tissue. ?Transurethral electrovaporization (TUVP). This procedure uses electrodes to destroy and remove a small amount of prostate tissue. ?Prostatic urethral lift. This procedure inserts an implant to push the lobes of the prostate away from the urethra. Follow these instructions at home: Take ekky-mki-jstcgks and prescription medicines only as told by your health care provider. Monitor your symptoms for any changes. Contact your health care provider with any changes. Avoid drinking large amounts of liquid before going to bed or out in public. Avoid or reduce how much caffeine or alcohol you drink. Give yourself time when you urinate. Keep all follow-up visits. This is important. Contact a health care provider if: You have unexplained back pain. Your symptoms do not get better with treatment. You develop side effects from the medicine you are taking. Your urine becomes very dark or has a bad smell. Your lower abdomen becomes distended and you have trouble passing urine. Get help right away if: You have a fever or chills. You suddenly cannot urinate. You feel light-headed or very dizzy, or you faint. There are large amounts of blood or clots in your urine. Your urinary problems become hard to manage. You develop moderate to severe low back or flank pain. The flank is the side of your body between the ribs and the hip. These symptoms may be an emergency. Get help right away. Call 911. Do not wait to see if the symptoms will go away. Do not drive yourself to the hospital. Summary Benign prostatic hyperplasia (BPH) is an enlarged prostate that is caused by the normal aging process. It is not caused by cancer. An enlarged prostate can press on the urethra. This can make it hard to pass urine. This condition is more likely to develop in men older than 50 years. Get help right away if you suddenly cannot urinate. This information is not intended to replace advice given to you by your health care provider. Make sure you discuss any questions you have with your health care provider. Document Revised: 08/20/2021 Document Reviewed: 08/20/2021 [employer] Patient Education 2022 [employer]. Follow Up Care 11/26/2021 14:19:12 With:MARY RAMIREZ LORA Shelly, URL Address: [place] [address] [phone] When: only if needed [facility] Maureen 02-17-2022 Evaluation + Plan note Extrac berkley from: Title:- [facility] H[facility]P Author:Constance Alvarado Date :02/17/22 Impression and Plan Patient is seen today for their interval coumadin assessment in [facility]. He is on Coumadin for Afib. He has a pmhx of Atrial fibrillation, Basal cell carcinoma, Benign essential hypertension, Hyperlipidemia, and Renal insufficiency. Pt is followed by Dr. Stark. He is tolerating Coumadin well. Denies any melena, hematochezia, hematuria, gingival bleeding, hematoma's or prolonged epistaxis. We discussed the patient's coumadin therapy today. --Indication: afib --Current coumadin pill being used: as above --Current dose of coumadin: as above --Side effects / complications of coumadin: Denies any problems with the use of coumadin -- denies any gum bleeds, nose bleeds, easy bruising, or other sequelae of coumadin toxicity. --Medication changes since last visit: none --OTC meds / herbal meds used since the last visit: none --Any change in diet since last visits, including vitamin-K rich foods: none --Compliance: no missed doses We also reviewed the patient's risk factors for bleeding using the Outpatient Bleeding Risk Index: 1. 65yo or older: yes 2. Hx of GI tract bleeding: no 3. Hx of stroke: no 4. Serious co-morbid conditions (recent MO, anemia with Hct <30%, CRI with SCr > 1.5, DM): yes Score = 2/4 Risk (low = 0, mod = 1-2, high = 3-4): Future Appointments Appointment Date:05/14/2023 03:30:00 PM Scheduled Provider: Location:[facility] Appointment Type:Anticoagulation Follow Up 15 ([facility]) [facility]10-12-[facility]22 Hospital Discharge instructions Patient Education 11/26/2021 14:12:32 Dysuria Dysuria Dysuria is pain or discomfort while urinating. The pain or discomfort may be felt in the part of your body that drains urine from the bladder (urethra) or in the surrounding tissue of the genitals. The pain may also be felt in the groin area, lower abdomen, or lower back. You may have to urinate frequently or have the sudden feeling that you have to urinate (urgency). Dysuria can affect both men and women, but it is more common in women. Dysuria can be caused by many different things, including: Urinary tract infection. Kidney stones or bladder stones. Certain sexually transmitted infections (STIs), such as chlamydia. Dehydration. Inflammation of the tissues of the vagina. Use of certain medicines. Use of certain soaps or scented products that cause irritation. Follow these instructions at home: General instructions Watch your condition for any changes. Urinate often. Avoid holding urine for long periods of time. After a bowel movement or urination, women should cleanse from front to back, using each tissue only once. Urinate after sexual intercourse. Keep all follow-up visits as told by your health care provider. This is important. If you had any tests done to find the cause of dysuria, it is up to you to get your test results. Ask your health care provider, or the department that is doing the test, when your results will be ready. Eating and drinking Drink enough fluid to keep your urine pale yellow. Avoid caffeine, tea, and alcohol. They can irritate the bladder and make dysuria worse. In men, alcohol may irritate the prostate. Medicines Take judw-ewh-memyndu and prescription medicines only as told by your health care provider. If you were prescribed an antibiotic medicine, take it as told by your health care provider. Do notstop taking the antibiotic even if you start to feel better. Contact a health care provider if: You have a fever. You develop pain in your back or sides. You have nausea or vomiting. You have blood in your urine. You are not urinating as often as you usually do. Get help right away if: Your pain is severe and not relieved with medicines. You cannot eat or drink without vomiting. You are confused. You have a rapid heartbeat while at rest. You have shaking or chills. You feel extremely weak. Summary Dysuria is pain or discomfort while urinating. Many different conditions can lead to dysuria. If you have dysuria, you may have to urinate frequently or have the sudden feeling that you have tourinate (urgency). Watch your condition for any changes. Keep all follow-up visits as told by your health care provider. Make sure that you urinate often and drink enough fluid to keep your urine pale yellow. This information is not intended to replace advice given to you by your health care provider. Make sure you discuss any questions you have with your health care provider. Document Released: 10/30/2004 Document Revised: 01/14/2018 Document Reviewed: 11/18/2017 [employer] Patient Education 2020 [employer]. Follow Up Care 11/19/2021 12:02:12 With:MARY RAMIREZ, LORA Bravo, URL Address: [address] [place] [address] [phone] When:11/26/2022 [facility] 10-04-2022 Hospital Discharge instructions Patient Education 11/17/2021 23:12:08 Uncontrolled Wound Bleeding Uncontrolled Wound Bleeding Uncontrolled bleeding can result from many causes. It can happen any time, especially for people who have an increased risk of bleeding. Uncontrolled bleeding can cause you to become confused or unconscious. It can also lead to shock or even be life-threatening. Call emergency services (911 in the [place] at the first sign of uncontrolled bleeding. Signs of uncontrolled bleeding include: Bleeding that does not stop even after applying direct pressure or using other techniques to stop it. Bleeding that spurts from a wound. Bleeding that pools in and around a wound and causes increased swelling. Bleeding that soaks through a dressing or clothing despite measures to stop it. If you are at risk for uncontrolled bleeding, you should take precautions to protect yourself from cuts and other injuries that can cause bleeding. You must also know how to stop bleeding if it occurs. Do I have an increased risk for uncontrolled bleeding? You may be at greater risk for uncontrolled bleeding if: You have had a recent bleeding injury treated at an urgent care center or emergency room, especially if the injury is in an area of the body with a lot of blood vessels or large blood vessels. You have a bleeding disorder, such as hemophilia or von Willebrand disease. You are on a blood-thinning medicine (anticoagulant), such as warfarin. You take medicines such as aspirin and ibuprofen. These medicines can also thin your blood. You are on chemotherapy. Many chemotherapy medicines can decrease your body's normal blood-clottingability. You have liver or kidney disease. How to prevent bleeding Take these precautions to help prevent bleeding: Be very careful when using knives, scissors, or other sharp objects. Use an electric razor instead of a blade. Do not use toothpicks. Use a soft-bristled toothbrush. [place] your teeth gently. Always wear shoes outdoors and wear slippers indoors. Be careful when cutting your fingernails and toenails. Place bath mats in the bathroom. If possible, install handrails as well. Wear gloves while you do yard work. Wear your seat belt. Prevent falls by removing loose rugs and extension cords from areas where you walk. Use a cane or walker if you need it. Avoid constipation by: ?Drinking enough fluid to keep your urine pale yellow. ?Eating foods that are high in fiber, such as beans, whole grains, and fresh fruits and vegetables. ?Limiting foods that are high in fat and processed sugars, such as fried or sweet foods. Do not play contact sports or participate in other activities that have a high risk for injury. How to stop bleeding If you are at risk for uncontrolled bleeding, ask your health care provider to help you assemble a first aid kit to control bleeding. Learn to use the supplies in your kit, and keep it handy at all times. If someone is available to help when you have uncontrolled bleeding, ask the person to assist you and stay with you until emergency services arrive. Follow these steps to stop bleedin.Find a safe place where you can remain still and calm. Lie down if possible. 2.Find the source of the bleeding. 3.Remove clothing over the wound to expose the area. 4.If possible, position yourself so that the body part with the wound is raised (elevated) above the level of your heart. 5.If you have a first aid kit, place a gauze pad from the kit over the bleeding area. If you do nothave a kit, use any clean towel or cloth. 6.Put hard pressure over the wound. The smaller the wound, the smaller the area of pressure should be. Using the smallest surface possible generates more force directly onto the wound and is more efficient at controlling the bleeding. Maintain pressure until help arrives. If the wound is small, use your fingers to maintain direct pressure only on the wound as opposed tousing your entire palm. If the wound is larger, use a larger surface area to apply pressure. This may involve using one or both of your palms. If the wound is large and gaping, wipe away any pooled blood and pack the wound with packing gauze from your bleeding kit or with a clean towel or cloth. Put pressure over the packed wound with both hands until emergency services arrive. For severe uncontrolled bleeding from an arm or leg, apply a tourniquet from your bleeding kit about 2 3 inches above the wound. Tighten the tourniquet until bleeding stops. Secure the tourniquet, and write down the time you placed it. You may still place pressure over the wound. Follow these instructions at home: Take rxes-agg-dpjfufz and prescription medicines only as told by your health care provider. If you are taking blood thinners: ?Talk with your health care provider before you take any medicines that contain aspirin or NSAIDs. These medicines increase your risk for dangerous bleeding. ?Take your medicine exactly as told, at the same time every day. ?Wear a medical alert bracelet or carry a card that lists what medicines you take. Keep all follow-up visits as told by your health care provider. This is important. Contact a health care provider if you: Have menstrual bleeding that is heavier than normal. Have bloody or brown urine. Have easy bruising. Have stool that is black, tarry, bright red, or maroon. Vomit material that is dark brown, black, or red. Feel weak or dizzy. Get help right away if you: Have bleeding that does not stop despite applying first aid measures. Have sudden, severe bleeding. Have chest pain. Have shortness of breath. Faint. Summary Call emergency services (911 in the [place] at the first sign of uncontrolled bleeding. Signs of uncontrolled bleeding include bleeding that will not stop or bleeding that spurts, pools, or soaks through a dressing. Follow the steps to help stop bleeding until help arrives. If someone is available to help when you have uncontrolled bleeding, ask the person to assist you and stay with you until emergency services arrive. This information is not intended to replace advice given to you by your health care provider. Make sure you discuss any questions you have with your health care provider. Document Released: 10/26/2018 Document Revised: 10/26/2018 Document Reviewed: 10/26/2018 [employer] Patient Education 2020 [employer]. 11/17/2021 23:12:08 Wound Care, Adult Wound Care, Adult Taking care of your wound properly can help to prevent pain, infection, and scarring. It can also help your wound to heal more quickly. How to care for your wound Wound care Follow instructions from your health care provider about how to take care of your wound. Make sure you: ?Wash your hands with soap and water before you change the bandage (dressing). If soap and water are not available, use hand fruit or nut crops farm manager. ?Change your dressing as told by your health care provider. ?Leave stitches (sutures), skin glue, or adhesive strips in place. These skin closures may need to stay in place for 2 weeks or longer. If adhesive strip edges start to loosen and curl up, you may trim the loose edges. Do not remove adhesive strips completely unless your health care provider tells you to do that. Check your wound area every day for signs of infection. Check for: ?Redness, swelling, or pain. ?Fluid or blood. ?Warmth. ?Pus or a bad smell. Ask your health care provider if you should clean the wound with mild soap and water. Doing this may include: ?Using a clean towel to pat the wound dry after cleaning it. Do not rub or scrub the wound. ?Applying a cream or ointment. Do this only as told by your health care provider. ?Covering the incision with a clean dressing. Ask your health care provider when you can leave the wound uncovered. Keep the dressing dry until your health care provider says it can be removed. Do not take baths, swim, use a hot tub, or do anything that would put the wound underwater until your health care provider approves. Ask your health care provider if you can take showers. You may only be allowed to take sponge baths. Medicines If you were prescribed an antibiotic medicine, cream, or ointment, take or use the antibiotic as told by your health care provider. Do not stop taking or using the antibiotic even if your condition improves. Take zlwm-qkj-yrdwmrw and prescription medicines only as told by your health care provider. If you were prescribed pain medicine, take it 30 or more minutes before you do any wound care or as told byyour health care provider. General instructions Return to your normal activities as told by your health care provider. Ask your health care provider what activities are safe. Do not scratch or pick at the wound. Do not use any products that contain nicotine or tobacco, such as cigarettes and e-cigarettes. These may delay wound healing. If you need help quitting, ask your health care provider. Keep all follow-up visits as told by your health care provider. This is important. Eat a diet that includes protein, vitamin A, vitamin C, and other nutrient-rich foods to help the wound heal. ?Foods rich in protein include meat, dairy, beans, nuts, and other sources. ?Foods rich in vitamin A include carrots and dark green, leafy vegetables. ?Foods rich in vitamin C include citrus, tomatoes, and other fruits and vegetables. ?Nutrient-rich foods have protein, carbohydrates, fat, vitamins, or minerals. Eat a variety of healthy foods including vegetables, fruits, and whole grains. Contact a health care provider if: You received a tetanus shot and you have swelling, severe pain, redness, or bleeding at the injection site. Your pain is not controlled with medicine. You have redness, swelling, or pain around the wound. You have fluid or blood coming from the wound. Your wound feels warm to the touch. You have pus or a bad smell coming from the wound. You have a fever or chills. You are nauseous or you vomit. You are dizzy. Get help right away if: You have a red streak going away from your wound. The edges of the wound open up and separate. Your wound is bleeding, and the bleeding does not stop with gentle pressure. You have a rash. You faint. You have trouble breathing. Summary Always wash your hands with soap and water before changing your bandage (dressing). To help with healing, eat foods that are rich in protein, vitamin A, vitamin C, and other nutrients. Check your wound every day for signs of infection. Contact your health care provider if you suspectthat your wound is infected. This information is not intended to replace advice given to you by your health care provider. Make sure you discuss any questions you have with your health care provider. Document Released: 11/10/2008 Document Revised: 05/22/2019 Document Reviewed: 08/18/2016 [employer] Patient Education 2020 [employer]. Follow Up Care 11/17/2021 21:44:33 With:Kristi Ramos Address: Arti Garcia, kj , [facility] [address] [place] [address]- [phone] Business (1) When:11/20/2021 Comments:Return to the emergency room if the bleeding recurs or any new symptoms [facility]10-03-2022 Evaluation + Plan noteExtracted from: Title:ED Note Author:Edinson Barba, Bianca Sellers te:11/17/21 1. Bleeding from wound (T81. 89XA: Other complications of procedures, not elsewhere classified, initial encounter) Future Appointments Appointment Date:11/19/2021 10:30:00 AM Scheduled Provider:LORA HERNANDEZ PA-C Location:[facility] Appointment Type:URO Office Visit Appointment Date:11/21/2021 03:30:00 PM Scheduled Provider: Location:.C[facility]IO Appointment Type:Anticoagulation Follow Up 15 (FT) [facility]01-11-2022 Evaluation + Plan noteExtracted from: Title:- [facility] H&P Author:Constance Alvarado Date :02/25/21 Impression and Plan Patient is seen today for their interval coumadin assessment in the [facility]. He is on Coumadin for Afib. He has a pmhx of Atrial fibrillation, Basal cell carcinoma, Benign essential hypertension, Hyperlipidemia, and Renal insufficiency. Pt is followed by Dr. Stark. He is tolerating Coumadin well. Denies any melena, hematochezia, hematuria, gingival bleeding, hematoma's or prolonged epistaxis. He is slightly supratherapeutic today at 3.9, no clear cause-no antibiotics or change in medications. We discussed the patient's coumadin therapy today. --Indication: afib --Current coumadin pill being used: as above --Current dose of coumadin: as above --Side effects / complications of coumadin: Denies any problems with the use of coumadin -- denies any gum bleeds, nose bleeds, easy bruising, or other sequelae of coumadin toxicity. --Medication changes since last visit: none --OTC meds / herbal meds used since the last visit: none --Any change in diet since last visits, including vitamin-K rich foods: none --Compliance: no missed doses We also reviewed the patient's risk factors for bleeding using the Outpatient Bleeding Risk Index: 1. 65yo or older: yes 2. Hx of GI tract bleeding: no 3. Hx of stroke: no 4. Serious co-morbid conditions (recent MO, anemia with Hct <30%, CRI with SCr > 1.5, DM): yes Score = 2/4 Risk (low = 0, mod = 1-2, high = 3-4): Future Appointments Appointment Date:11/07/2021 10:15:00 AM Scheduled Provider:Jay PAGE MD Location:[facility] Appointment [facility]ments Appointment Date:12/02/2021 03:30:00 PM Scheduled [facility]: [facility] Type:Anticoagulation Follow Up 15 (FT) Appointment Date:12/02/2022 01:00:00 PM Scheduled Provider:LORA HERNANDEZ PA-C Location:[facility] Appointment Type:URO Office Visit [facility] evaluation + Plan note Future Appointments Appointment Date:02/17/2022 03:30:00 PM Scheduled Provider: [facility] Type:Anticoagulation Follow Up 15 (FT) Appointment Date:02/19/2022 10:30:00 AM Scheduled Provider:Austin Aquino MD Location[facility] Appointment Type:WC Follow Up Visit (FT) Appointment Date:12/02/2022 01:00:00 PM Scheduled Provider:LORA HERNANDEZ PA-C Location:[facility] Appointment Type:[facility]O [facility] Future Appointments Appointment Date:03/26/2022 09:00:00 AM Scheduled Provider:Austin Aquino MD Location[facility] Appointment Type:WC Follow Up Visit (FT) Appointment Date:03/31/2022 03:30:00 PM Scheduled Provider: Location:.[facility] Appointment Type:Anticoagulation Follow Up 15 (FT) Appointment Date:12/02/2022 01:00:00 PM Scheduled Provider:LORA HERNANDEZ PA-C Location:[facility] Appointment Type:[facility]O [facility] Future App[facility]ments Appointment Date:03/27/2022 05:00:00 PM Scheduled Provider: Location:.MRI Appointment Type:MRI Brain (FT) Appointment Date:03/31/2022 03:30:00 PM Scheduled Provider: Location:.[facility] Appointment Type:Anticoagulation Follow Up 15 (FT) Appointment Date:12/02/2022 01:00:00 PM Scheduled Provider:LORA HRENANDEZ PA-C Location:[facility] Appointment Type:URO Office Visit Future Scheduled Tests Radiology* MRI Brain w/o Contrast 03/27/22 [facility] App[facility]ments Appointment Date:12/11/2022 03:30:00 PM Scheduled Provider: Location:.[facility] Appointment Type:Anticoagulation Follow Up 15 (FT) [facility] evaluation + Plan note Future Appointments Appointment Date:03/05/2023 03:30:00 PM Scheduled Provider: Location:.[facility]IO Appointment Type:Anticoagulation Follow Up 15 (FT) Appointment Date:03/09/2023 02:00:00 PM Scheduled Provider:Boris Martinez DPM Location:[facility] Appointment Type:WC [facility] ([facility] App[facility]ments Appointment Date:11/12/2023 03:30:00 PM Scheduled Provider: Location:FT.[facility] Appointment Type:Anticoagulation Follow Up 15 (FT) [facility] Evaluation noteNo assessment information available [facility] Work Phone: Evaluation note* Diagnosis Paroxysmal atrial fibrillation (CMS/HCC)- Primary Atrial fibrillation Permanent atrial fibrillation (CMS/HCC) Atrial fibrillation Mixed hyperlipidemia Primary hypertension Unspecified essential hypertension Single vessel coronary disease Shortness of breath BMI 35.0-35.9,adult documented in this encounter [facility] Work Phone: Evaluation note* Diagnosis Type 2 diabetes mellitus with diabetic neuropathy, without long-term current use of insulin ([facility])- Primary Venous insufficiency (chronic) (peripheral) Unspecified venous (peripheral) insufficiency Chronic 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 (CMS/HCC) documented in this encounter [facility] HealthcareEvaluation note* Diagnosis Onset Date Resolution Status Varicose veins of both legs with edema acute [facility] Work Phone: History of Present illness Narrative* Patient is here for follow-up continue management for chronic atrial fibrillation, long-term anticoagulation, coronary artery disease with remote PCI, hypertension and obesity. Since last time I saw him he described mild shortness of breath and lower extremity edema unchanged from before. He denieschest pain, palpitation, lightheadedness, dizziness or syncope. Is compliant with his medication. * ASSESSMENT: * 1. Chronic permanent atrial fibrillation. Failed long-term amiodarone therapy. Had been treated with heart rate control on long-term anticoagulation * 2. Long-term anticoagulation with Coumadin. Tolerating that well without any side effect * 3. Probable sleep apnea pain evaluation * 4. coronary artery disease with remote percutaneous coronary left circumflex and marginal * 5. Hypertension controlled * 6. Obesity with no weight changes * 7. Minor shortness of breath unchanged from before * 8. Hyperlipidemia on combination therapy no recent lab available to review * 9. 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 We discussed treatment option at great length.. Patient elected for heart rate control on long-term anticoagulation * 2. The patient was counseled regarding losing weight, exercise, and risk factor adjustment. * 3. I encouraged the patient to restrict his salt intake * 4. I discussed with him switching to one of the newer agent like Eliquis or Xarelto patient stated he is comfortable with Coumadin and would like to stay on the * 5. Follow-up in and plan to repeat his lab work as ordered * 6. We discussed sleep evaluation but the patient want to defer for now [facility] [address] DO Work Phone: History of Present illness Narrative* Here for follow- up continue management for chronic permanent atrial fibrillation, long-term anticoagulation, coronary artery disease, hypertension and obesity. Since last time I saw him described functional class II. He denies complaint of chest pain, palpitation, lightheadedness, dizziness or syncope. He remains reasonably active. His recent lab work noted and reviewed with him. * ASSESSMENT: * 1. Chronic permanent atrial fibrillation. Failed long-term amiodarone therapy. Had been treated with heart rate control on long-term anticoagulation * 2. Long-term anticoagulation with Coumadin. Tolerating that well without any side effect * 3. Probable sleep apnea. Patient declined evaluation * 4. coronary artery disease with remote percutaneous coronary left circumflex and marginal * 5. Hypertension controlled * 6. Obesity with minor weight loss * 7. Minor shortness of breath unchanged from before * 8. Hyperlipidemia on rosuvastatin. LDL is 51 triglyceride mildly elevated * 9. 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 We discussed treatment option at great length.. Patient elected for heart rate control on long-term anticoagulation * 2. The patient was counseled regarding losing weight, exercise, and risk factor adjustment. * 3. I encouraged the patient to restrict his salt intake * 4. I discussed again with him switching to one of the newer agent like Eliquis or Xarelto patient stated he is comfortable with Coumadin and would like to stay on the * 5. I reviewed his recent lab with him * 6. We discussed sleep evaluation but the patient want to defer for now * 7. We will see him in 9 months with an EKG [facility] 600 DO Work Phone: Hospital course Narrative No data available for this section [facility] No data available for this section [facility] No data available for this section [facility] Summary Purpose Family History No Family History Records FoundUnknown Family Member Name Dates Details No pertinent family history: Mother, Sister, Brother(V49.89, Z78.9) Status:Active Stroke syndrome: Father Comments: at age 90; Status:Active Unknown Family Member Name Dates Details No pertinent family history: Mother, Sister, Brother(V49.89, Z78.9) Status:Active Stroke syndrome: Father Comments: at age 90; Status:Active Unknown Family Member Name Dates Details No pertinent family history: Mother, Sister, Brother(V49.89, Z78.9) Status:Active Stroke syndrome: Father Comments: at age 90; Status:Active Advance Directives No Advanced Directives Records Found Advance Directive Response Recorded Date/ Time Advance Directives No October 11, 2016 11:00am Advance Directive Response Recorded Date/ Time Advance Directives No April 20 5:10pm Advance Directive Response Recorded Date/ Time Advance Directives No October 11, 2016 12:00pm Chief Complaint MCKAYLA LOZANO is being seen for a 6 month follow-up of.MCKAYLA LOZANO is being seen for a 6 month follow-up of. Chief Complaint and Reason for Visit Chief Complaint T81.41XA T81.41XXA T81.41X Chief Complaint Referred for Venous Insufficiency i70.213 i83.813 Chief Complaint Referred for Venous Insufficiency i70.213 i83.813 Follow up after Full Functional [facility] 04/28/23 Reason for Visit Varicose veins of adi th legs with edema Reason for Referral Specialty Diagnoses / Procedures Referred By Contac t Referred To Contact Diagnoses Permanent atrial fibrillation (CMS/HCC) Procedures ECG 12 Lead Leola Stark MD [address] [place] [address] 2, [address] [address] Referral ID Status Reason Start Date Expiration Date V isits Requested Visits Authorized [id number] Authorized 03/24/2023 03/23/2024 1 1 Specialty Diagnoses / Procedures Referred By Contac t Referred To Contact Cardiology Diagnoses Permanent atrial fibrillation (CMS/HCC) Primary hypertension Procedures Follow Up In Cardiology Leola Stark MD [address] [facility] 2, [address] [address] Leola Stark MD 7[address] [facility] 2, [address] [address] Referral ID Status Reason Start Date Expiration Date V isits Requested Visits Authorized [id number] Authorized 03/24/2023 03/23/2024 1 1 Additional Source Comments (unrecognized sect ion and content) No Status Records FoundNo Status Records FoundNo Status Records FoundNo Status Records FoundNo Status Records FoundNo Status Records FoundNo Status Records FoundNo Status Records FoundNo Status Records FoundNo Status Records FoundNo Status Records FoundNo Status Records FoundNo Status Records FoundNo Status Records FoundNo Status Records FoundNo Status Records FoundNo Status Records Found INFORMATION SOURCE (unrecogn ized section and content) DATE CREATED AUTHOR 05/12/2018 [facility] DATE CREATED AUTHOR AUTHOR'S ORGANIZ ATION 12/08/2021 [facility] DATE CREATED AUTHOR AUTHOR'S ORGANIZ ATION 12/08/2021 [facility] DATE CREATED AUTHOR AUTHOR'S ORGANIZ ATION 06/24/2022 [facility] DATE CREATED AUTHOR AUTHOR'S ORGANIZ ATION 08/27/2022 [facility] DATE CREATED AUTHOR AUTHOR'S ORGANIZ ATION 03/29/2023 [facility] DATE CREATED AUTHOR AUTHOR'S ORGANIZ ATION 04/29/2023 [facility] DATE CREATED AUTHOR AUTHOR'S ORGANIZ ATION 06/17/2023 [place] [facility] DATE CREATED AUTHOR AUTHOR'S ORGANIZ ATION 07/11/2023 [place] [facility] DATE CREATED AUTHOR AUTHOR'S ORGANIZ ATION 08/06/2023 [facility] EPIC DATE CREATED AUTHOR AUTHOR'S ORGANIZ ATION 10/02/2023 [place] [facility] DATE CREATED AUTHOR AUTHOR'S ORGANIZ ATION 10/03/2023 [place] [facility] DATE CREATED AUTHOR AUTHOR'S ORGANIZ ATION 10/07/2023 [place] [facility] DATE CREATED AUTHOR AUTHOR'S ORGANIZ ATION 11/14/2023 [place] [facility] Care Team (unrecognized sect ion and content) Team Status: Inactive Member Role Status Dates Kristi Ramos NP Primary Care Provider Active Brian Pradhan MD Attending Provider Active Team Status: Active Member Role Status Dates Kristi Ramos NP Primary Care Provider Active Team Status: Inactive Member Role Status Dates Brian Pradhan MD Attending Provider Active Team Status: Inactive Member Role Status Dates Kristi Ramos NP Primary Care Provider Active Becky Dupont MD Attending Provider Active Intelligence Agent Relationship Specialty Start Date End Date Elda Cee DO [address] [place] [address] PCP - General Family Medicine 03/24/23 Leola Stark MD 703 [facility] 2, [address] [place] [address] Consulting Physician Cardiology 03/24/23 Intelligence Agent Relationship Specialty Start Date End Date Elda Cee DO [address] [phone] PCP - General 07/08/22 Intelligence Agent Relationship Specialty Start Date End Date Elda Cee DO [address] [phone] PCP - General 07/08/22 Team Status: Active Member Role Status Dates Elda Cee III DO Primary Care Provider Active Team Status: Inactive Member Role Status Dates Adrian Lares MD Attending Provider Active Start: April 15, 2023 End: April 15, 2023 Elda Cee III , DO Primary Care Provider Active Start: April 15, 2023 End: April 15, 2023 Boris Martinez DPM Referring Provider Active Sta rt: April 15, 2023 End: April 15, 2023 Team Status: Inactive Member Role Status Dates Elda Cee III , DO Primary Care Provider Active Start: April 28, 2023 End: April 28, 2023 Adrian Lares MD Attending Provider Active Start: April 28, 2023 End: April 28, 2023 Team Status: Inactive Member Role Status Dates Elda Cee III , DO Primary Care Provider Active Start: May 06, 2023 End: May 06, 2023 Adrian Lares MD Attending Provider Active Start: May 06, 2023 End: May 06, 2023 Goals (unrecognized section and content) Goals may be documented in a n alternate section Reason for Visit (unrecogniz ed section and content) Reason Comments Follow-up 6-7 mo Specialty Diagnoses / Procedures Referred By Contlv t Referred To Contact Diagnoses Permanent atrial fibrillation (CMS/HCC) Procedures ECG 12 Lead Leola Stark MD [address] [facility] 2, [place] [address] [place] [id number] Referral ID Status Reason Start Date Expiration Date V isits Requested Visits Authorized [id number] Authorized 03/24/2023 03/23/2024 1 1 Reason Comments Wound Check F/U LT lower leg wou nd FOR RECORDS PERTAINING TO PATIENTS WHO ARE OR HAVE BEEN ENROLLED IN A CHEMICAL DEPENDENCY/SUBSTANCEABUSE PROGRAM, SOME INFORMATION MAY BE OMITTED. This clinical summary was aggregated from multiple sources. Caution should be exercised in using it in the provision of clinical care. This summary normalizes information from multiple sources, and as a consequence, information in this document may materially change the coding, format and clinical context of patient data. In addition, data may be omitted in some cases. CLINICAL DECISIONS SHOULD BE BASED ON THE PRIMARY CLINICAL RECORDS. [employer] [facility] [employer] [facility]. provides no warranty or guarantee of the accuracy or completeness of information in this document.
== END 2023-11-23 14:23 | disposition home or self-care (01) ==
LOC: WC 14:22
PROVIDERS: PCP Physician Assistant; Visit Provider Physician Assistant
DX: I87.311 Chronic venous hypertension (idiopathic) with ulcer of right lower extremity (principal); L97.812 Non-pressure chronic ulcer of other part of right lower leg with fat layer exposed
CPT/HCPCS: G0463